=== PATIENT | male | born 1945 | race Caucasian/White ===

== ENCOUNTER → 2018-01-11 08:30 | Outpatient (CLI) | payer MEDICARE, SELFPAY | PROVIDERS: PCP Nurse Practitioner Family; Visit Provider Nurse Practitioner Gerontology | DX: R33.9 Retention of urine, unspecified (principal); I10 Essential (primary) hypertension; J44.9 Chronic obstructive pulmonary disease, unspecified | CPT/HCPCS: 99213 ==

== ENCOUNTER → 2018-04-13 09:56 | Outpatient (BNVA) | payer MEDICARE, SELFPAY | PROVIDERS: PCP Nurse Practitioner Family; Visit Provider Nurse Practitioner Gerontology | DX: R33.9 Retention of urine, unspecified (principal); I10 Essential (primary) hypertension; J44.9 Chronic obstructive pulmonary disease, unspecified | CPT/HCPCS: 99213 ==

== ENCOUNTER → 2018-04-28 10:27 | Outpatient (BNVA) | payer MEDICARE, SELFPAY | PROVIDERS: PCP Nurse Practitioner Family; Visit Provider Nurse Practitioner Gerontology | DX: R33.9 Retention of urine, unspecified (principal) | CPT/HCPCS: 99213 ==

== ENCOUNTER 2019-05-31 18:43 | Emergency (ER) | payer MEDICARE, SELFPAY ==
[2019-05-31 18:56] VITALS: BP 140/79; PULSE 114; RESP 16; TEMP 37.2; O2SAT 97
[2019-05-31 20:16] LABS: ALT 23 U/L (16-63); AST 23 U/L (15-37); Albumin 3.7 g/dL (3.4-5.0); Alkaline Phosphatase 113 U/L (46-116); Anion Gap 9.1 mmol/L (3-11); BUN 11 mg/dL (7-18); Bilirubin, Total 0.5 mg/dL (0.2-1.0); CO2 27.9 mmol/L (21.0-32.0); CREATININE 0.71 mg/dL (0.70-1.30); Calcium 8.8 mg/dL (8.5-10.1); Chloride 95 mmol/L (98-107); Glucose 98 mg/dL (74-106); Magnesium 1.6 mg/dL (1.8-2.4); Potassium 4.5 mmol/L (3.5-5.1); Sodium 132 mmol/L (136-145); Total Protein 7.5 g/dL (6.4-8.2)
[2019-05-31 20:20] LABS: Abs Immature Grans 0.04 k/cumm (0.0-0.09); Absolute Basophil Count 0.02 k/cumm (0.0-0.2); Absolute Neutrophil Count 13.43 k/cumm (1.2-6.7); Basophils % 0.1; Eosinophils % 0.3; HCT 36.4 % (40.0-50.0); Immature Grans % 0.3; Lymphocytes % 4.8; Mean Corpuscular Hemoglobin 26.3 pg (27.0-33.0); Mean Corpuscular Volume 79.6 fL (80-95); Mean Platelet Volume 8.6 fL (8.0-11.0); Neutrophils % 85.5; Platelet Count 387 x1000/uL (130-400); RBC 4.57 m/cumm (4.50-6.00); RBC Distribution Width 14.7 % (11.8-14.1); White Blood Cell Count 15.71 k/cumm (4.4-10.8)
[2019-05-31 20:22] LABS: Absolute Eosinophil Count 0.05 k/cumm (0.0-0.7); Absolute Lymphocyte Count 0.75 k/cumm (1.2-3.4); Absolute Monocyte Count 1.41 k/cumm (0.11-0.7)
[2019-05-31 20:45] LABS: Bilirubin Negative (Negative); Blood Negative (Negative); Clarity Clear (Clear); Glucose Negative (Negative); Ketones Negative (Negative); Leukocyte Esterase Negative (Negative); Nitrite Negative (Negative); Specific Gravity 1.015 (1.005-1.025); Urobilinogen 0.2 EU/dL (Up TO 0.2)
--- NOTE | 2019-05-31 20:57 | W.ED.GENAD ---
Discharge Plan Disposition Patient Disposition: HOME Discharge Details Chief Complaint: AMS/LOC Clinical Impression: Confusion Primary Care Provider: Deanne Cuba ED Provider: Slade Oswald Home Meds and New Rx's Prescriptions: Continued ALBUTEROL SULFATE HFA 8.5 GM HFA.AER.AD 2 puff Inhalation Q4H PRN Qty: 3 RF: 4 loratadine 10 MG tablet,disintegrating 1 tab PO daily prn RF: 0 aspirin 325 MG tablet 1 tab PO DAILY RF: 0 levothyroxine 75 MCG tablet 1 tab PO DAILY Qty: 90 RF: 4 prednisolone acetate [Pred Forte] 5 ML drops,suspension 1 drp OD DAILY Qty: 3 RF: 4 ascorbic acid (vitamin C) [Vitamin C] 500 MG tablet 1 tab PO DAILY RF: 0 omeprazole 20 MG capsule,delayed release(DR/EC) 1 cap PO DAILY Qty: 90 RF: 4 mometasone [Nasonex] 17 GM spray,non-aerosol 1 spray NS DAILY Qty: 3 RF: 4 atorvastatin 80 MG tablet 0.5 tab PO DAILY RF: 0 Symbicort 10.2 GM HFA aerosol inhaler 2 puff Inhalation BID RF: 0 Probiotic 1 EACH capsule 1 ea PO DAILY RF: 0 nitroglycerin [Nitrostat] 0.4 MG tablet, sublingual 1 tab.sl Sublingual PRN Qty: 10 RF: 1 lisinopril 10 MG tablet 10 mg PO DAILY RF: 0 brimonidine 15 ML drops 1 drp OD BID RF: 0 clopidogrel 75 mg Tablet 75 mg PO DAILY RF: 0 lorazepam 0.5 mg Tablet 0.5 mg PO QID PRN PRNRF: 0 oxycodone 5 mg Tablet 5 mg PO Q6H PRN PRNRF: 0 magnesium oxide 500 mg tablet 500 mg PO BID Qty: 60 RF: 2 gabapentin 250 mg/5 mL (5 mL) Solution 18 mg PO BID RF: 0 Discontinued scopolamine base 1 mg over 3 days Patch 3 Day 1.5 mg topical RF: 0 Discharge Instructions Additional Instructions: Please follow-up tomorrow with your oncologist. Be sure to discuss symptoms that you experienced today and discuss any recommendations for alternative to scopolamine patch. Please contact your primary care physician to arrange follow-up. Return to the ER for any worsening or new concerning symptoms. Referrals: Deanne Cuba NP [Primary Care Provider] - Discharge Data Discharge Date/Time-TO BE ENTERED AT DEPARTURE: 06/01/19 00:20 Medical Decision Making 21:00 --74-year-old male with history of oral cancer status post chemo, radiation, resection and grafting, now with new throat/neck mass concerning for recurrence, increased secretions recently, started on scopolamine patch yesterday, now with mild to moderate confusion today that seem to have improved since removal of the patch. Patient did have low-grade fever today. Patient has no signs of meningitis. Lungs are clear to auscultation. No urinary symptoms or abdominal discomfort or tenderness currently. Consider infectious etiology for confusion including UTI. Urinalysis was reviewed and is not consistent with infection. Labs reviewed and leukocytosis noted. Patient does have increased neck secretions and pain in his neck. Plan to proceed with CT of the cervical spine and chest to assess for infectious etiology including deep space infection of the neck. Obtained and reviewed outside hospital records including PET scan from [facility] 05/17/2019, interpreted by radiology: Large area of highly FDG avid soft tissue density fullness in the supraglottic right and left prevertebral/parapharyngeal space, highly suspicious for recurrent malignancy. Please see recent MR 05/04/2019 for further characterization of local tumor extent. Small notable metastasis strongly suspected in bilateral supraclavicular regions and in the right level 2 region. No distant sites of metastasis. Incidental CT findings noted. --CT neck interpreted by radiology: IMPRESSION: 1. Previous left neck surgery with partial resection of the mandible and probable soft tissue flap. No features to suggest acute process. Cannot exclude recurrence soft tissue mass in the left posterior parapharyngeal region deep to the soft tissue flap. 2. Mandibular hardware appears to have partially retracted from posterior mandibular attachment. 3. Cervical spine fusion and surgery. CT of the chest interpreted by radiology:IMPRESSION: 1. Diffuse emphysematous lung changes bilaterally. 2. Left lingular atelectasis. 3. Right basilar lung atelectasis posteriorly. 11:10 -- I called [facility] transfer center to discuss consultation with oncology. Awaiting call back. -- Spoke with oncology nutritional chemist - She agrees holding scopolamine and will arrange for timely outpatient followup. Plan discussed with patient and family who are in agreement. HPI General Mode of arrival: ambulatory. Date/Time Provider Initiated Documentation: 05/31/19 19:09. Limitations to Documentation: no limitations. Information obtained by: patient. 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 Patient is here with his who notes he has had increased secretions recently and was started on scopolamine patch yesterday. Today notes that he has been mild to moderately confused at times. She states he said low-grade fever today of 99 F. Denies cough or urinary symptoms. No headache. No neck stiffness. No abdominal pain. Related Data Home Medications Medication Instructions Recorded Confirmed Albuterol Sulfate Hfa 2 puff INHALATION Q4H PRN #3 puff 10/01/12 05/31/19 ascorbic acid (vitamin C) [Vitamin 1 tab PO DAILY 10/01/12 05/31/19 C] aspirin 1 tab PO DAILY tab-cap 10/01/12 05/31/19 levothyroxine 1 tab PO DAILY #90 tab-cap 10/01/12 05/31/19 loratadine 1 tab PO daily prn tab-cap 10/01/12 05/31/19 omeprazole 1 cap PO DAILY #90 tab-cap 10/01/12 05/31/19 prednisolone acetate [Pred Forte] 1 drp OD DAILY #3 drp 10/01/12 05/31/19 mometasone [Nasonex] 1 spray NS DAILY #3 spray 10/03/12 05/31/19 atorvastatin 0.5 tab PO DAILY 02/25/15 05/31/19 Symbicort 2 puff INHALATION BID inhaler 03/03/16 05/31/19 Probiotic 1 ea PO DAILY 09/09/16 04/28/18 nitroglycerin [Nitrostat] 1 tab.sl SUBLINGUAL PRN #10 tab 09/09/16 05/31/19 lisinopril 10 mg PO DAILY tab-cap 03/24/17 05/31/19 brimonidine 1 drp OD BID script 08/31/17 05/31/19 clopidogrel 75 mg PO DAILY 04/16/18 04/28/18 lorazepam 0.5 mg PO QID PRN PRN 04/16/18 05/31/19 oxycodone 5 mg PO Q6H PRN PRN 04/16/18 04/28/18 magnesium oxide 500 mg PO BID #60 tab 04/20/18 05/31/19 gabapentin 18 mg PO BID 05/31/19 05/31/19 Previous Rx's Medication Instructions Recorded magnesium oxide 500 mg PO BID #60 tab 04/20/18 Allergies Allergy/AdvReac Type Severity Reaction Status Date / Time carboplatin AdvReac Unknown BURNING Unverified 05/31/19 19:21 SENSATION lorazepam [From Ativan] AdvReac Unknown RESPIRATORY Unverified 05/31/19 19:22 DEPRESSION General Stated Complaint: AMS/LOC PAULO: 3 Review of Systems All systems reviewed & are unremarkable except as noted in HPI and below Constitutional Constitutional: Reports fever(s), Denies headache(s) and Denies lethargy ENT Ears, Nose, Mouth, and Throat: Reports as per HPI, Denies headache(s) and Reports neck pain (Left neck/throat chronic) Respiratory Respiratory: Denies cough Gastrointestinal Gastrointestinal: Denies vomiting Genitourinary Genitourinary: Denies dysuria and Denies flank pain Musculoskeletal Musculoskeletal: Reports neck pain (Left neck/throat chronic) Neurologic Neurologic: Denies headache(s) [facility] Medical History AAA (abdominal aortic aneurysm) (Chronic) Cervical disc disease with myelopathy (Chronic) COPD (chronic obstructive pulmonary disease) (Chronic) Essential hypertension (Chronic) GERD (gastroesophageal reflux disease) (Chronic) HLD (hyperlipidemia) (Chronic) CELESTINO (obstructive sleep apnea) (Chronic) Peripheral artery disease (Chronic) Primary tongue squamous cell carcinoma (Chronic) Surgical History H/O excision of lamina of cervical vertebra for decompression of spinal cord (Resolved 01/03/18) s/p C3-C6 posterior decompression and fusion to treat cervical myelopathy Laminectomy (Resolved 02/22/17) PROCEDURES (Resolved 02/22/17) [facility] Laminectomy,facetectomy & Foraminotomy, Lumbar,Thoracic SKIN GRAFT (Resolved) right hand ; burn on dorsum Status post angioplasty with stent (Resolved 04/05/18) bilateral iliofemoral endarterectomy w/ bovine patch angioplasty. bilateral profundaplasty, bilateral common iliac and external iliac stents. [facility], Dr. Rosy Qiu Tongue surgery (Resolved ~07/2009) Family History Mother Essential hypertension Neoplasm Colon Father Diabetes Essential hypertension Heart disease Stroke Sister No problems noted. Brother Essential hypertension Grandfather Heart disease Grandfather Heart disease Grandmother Heart disease Grandmother Heart disease Sister No problems noted. Brother No problems noted. Son No problems noted. Daughter No problems noted. Daughter No problems noted. Social History Smoking/Tobacco Use Status: Former Tobacco Use Alcohol Intake: current Alcohol type: beer Drug use: Never Substance use type: does not use Details: pt has one beer per night , he had one last night Do you feel safe in your relationship?: Yes Exam Const General: cooperative and no acute distress HENMT Mouth: moist mucous membranes Throat: posterior oropharynx abnormal (Status post grafting left throat) no erythema Eyes Conjunctivae: normal conjunctivae Sclera: normal sclerae Neck Neck: trachea midline and supple Resp Auscultation: clear to auscultation bilaterally, no rales, no rhonchi and no wheezes Cardio Jugular venous pressure: no JVD Rate: regular rate and not tachycardic Rhythm: regular rhythm GI Palpation: soft, not firm, no guarding, no masses, not rigid and nontender Skin General skin exam: no rashes or lesions noted Neuro General: alert, awake, oriented x3 and tone normal Extrem General: no edema Psych Appearance: grossly normal Mental Status: mental status grossly normal Course Vital Signs Vital signs: Vital Signs Temperature 37.2 C 05/31/19 18:56 Pulse 114 H 05/31/19 18:56 Respiratory Rate 16 05/31/19 18:56 Blood Pressure 140/79 05/31/19 18:56 Pulse Oximetry 97 05/31/19 18:56 Temperature 37.2 C 05/31/19 18:56 Temperature Source Temporal Artery Scan 05/31/19 18:56 Pulse 114 H 05/31/19 18:56 Respiratory Rate 16 05/31/19 18:56 Respiratory Effort 05/31/19 19:19 Respiratory Depth Normal 05/31/19 19:19 Respiratory Pattern Normal 05/31/19 19:19 Blood Pressure 140/79 05/31/19 18:56 Pulse Oximetry 97 05/31/19 18:56 Oxygen Delivery Method Room Air 05/31/19 18:56 Oxygen Flow Rate 0 05/31/19 18:56 Lab/Test Results Lab/Test Results: Laboratory Tests Range/Units 05/31/19 05/31/19 05/31/19 19:50 19:50 20:40 WBC (4.4-10.8) k/cumm 15.71 H RBC (4.50-6.00) m/cumm 4.57 Hgb (13.5-17.5) g/dL 12.0 L Hct (40.0-50.0) % 36.4 L MCV (80-95) fL 79.6 L MCH (27.0-33.0) pg 26.3 L MCHC (32.0-36.0) g/dL 33.0 RDW (11.8-14.1) % 14.7 H Plt Count (130-400) x1000/uL 387 MPV (8.0-11.0) fL 8.6 Immature Gran % 0.3 Neutrophils % 85.5 Lymphocytes % 4.8 Monocytes % 9.0 Eosinophils % 0.3 Basophils % 0.1 Absolute Neutrophils (1.2-6.7) k/cumm 13.43 H Absolute Lymphocytes (1.2-3.4) k/cumm 0.75 L Absolute Monocytes (0.11-0.7) k/cumm 1.41 H Absolute Eosinophils (0.0-0.7) k/cumm 0.05 Absolute Basophils (0.0-0.2) k/cumm 0.02 Sodium (136-145) mmol/L 132 L Potassium (3.5-5.1) mmol/L 4.5 Chloride (98-107) mmol/L 95 L Carbon Dioxide (21.0-32.0) mmol/L 27.9 Anion Gap (3-11) mmol/L 9.1 BUN (7-18) mg/dL 11 Creatinine (0.70-1.30) mg/dL 0.71 Estimated GFR/1.73 m2 (mL/min/1.73m2) >= 60.00 Glucose (74-106) mg/dL 98 Calcium (8.5-10.1) mg/dL 8.8 Magnesium (1.8-2.4) mg/dL 1.6 L Total Bilirubin (0.2-1.0) mg/dL 0.5 AST (15-37) U/L 23 ALT (16-63) U/L 23 Alkaline Phosphatase (46-116) U/L 113 Total Protein (6.4-8.2) g/dL 7.5 Albumin (3.4-5.0) g/dL 3.7 Urine Color (Yellow) Yellow Urine Clarity (Clear) Clear Urine pH (5-8) 7.0 Ur Specific [place] (1.005-1.025) 1.015 Urine Protein (Negative) mg/dL Negative Urine Ketones (Negative) mg/dL Negative Urine Blood (Negative) Negative Urine Nitrite (Negative) Negative Urine Bilirubin (Negative) Negative Urine Urobilinogen (Up TO 0.2) EU/dL 0.2 Ur Leukocyte Esterase (Negative) Negative Urine Glucose (Negative) mg/dL Negative
[2019-05-31] MEDS: diazePAM 5 MG TAB PO (21:13)
[2019-05-31] MEDS: Lidocaine 2% Jelly 6 ML SYR (21:14)
[2019-05-31] MEDS: Omnipaque 350 MG/ML 100 ML BTL IJ (22:17)
[2019-05-31] MEDS: Omnipaque 350 MG/ML 50 ML BTL IJ (22:18)
--- NOTE | 2019-05-31 22:19 | DI.CT_ITS ---
EXAM: CT NECK CHEST W CLINICAL HISTORY: fever, leukocytosis, confusion, neck mass TECHNIQUE: COMPARISON: CT chest PE CTA from 04/16/2018 CT chest PE abd pelvis w from 04/16/2018 FINDINGS: CT examination of the cervical region and chest was performed with intravenous infusion of 110 cc Om nipaque 350. There has been prior posterior spinal fusion surgery with Moreira rods in place from C3 through C6. There has been apparent prior left mandibular resection soft tissue. No postoperati ve films are available for comparison. There is increased prominence of retropharyngeal and retro la ryngeal soft tissues extending from approximately C2 through C6. This may be related to prior surger y but the possibility of recurrence of neoplastic disease infiltrating this area is not excluded. No gross airway obstruction identified this time, please correlate clinically. Scanning of the chest shows atheromatous calcification of the thoracic aorta without aneurysm or diss ection. Pulmonary arterial circulation not ideally opacified but no central pulmonary embolus identi fied. There are severe pulmonary emphysematous changes predominantly central lobular and there are a reas of bibasilar scarring and/or atelectasis. Minimal basilar consolidation may be present. There are areas of abnormal radiodensity in the right lung base posteriorly suspicious for consolidation or poorly defined mass. Appropriate follow-up studies are requested to assess these findings to resolu tion. No gross mediastinal or hilar adenopathy. Tracheolaryngeal structures appear intact. No pleural eff usion. Images obtained through the upper abdomen show a large left renal cyst and cholelithiasis. Visualize d portions of liver, spleen and pancreas appear. IMPRESSION: Postsurgical findings with resection of left mandible and presumed soft tissue flap as well as spa manager/esthetician ior cervical fusion. Retropharyngeal/retro laryngeal increased soft tissue prominence noted, no prio r examinations for comparison, neoplastic recurrence not excluded. Severe pulmonary emphysema, question right lung consolidation and/or masses in the lung base. Follow -up chest CT requested to re-evaluate these findings and exclude neoplastic disease.
--- NOTE | 2019-05-31 23:00 | DI.VRAD_ITS ---
PROCEDURE INFORMATION: Exam: CT Neck With Contrast Exam date and time: 05/31/2019 10:04 PM Age: 74 years old Clinical indication: Mass, lump, or swelling in neck; Prior surgery; Surgery date: 6+ months; Surgery type: Neck and jaw/tongue; Patient HX: Fever, leukocytosis, confusion, known left sided neck mass (not visible or palpable) TECHNIQUE: Imaging protocol: Computed tomography images of the neck with intravenous contrast. Radiation optimization: All CT scans at this facility use at least one of these dose optimization techniques: automated exposure control; mA and/or kV adjustment per patient size (includes targeted exams where dose is matched to clinical indication); or iterative reconstruction. Contrast material: [id number]; Contrast volume: 40 ml; Contrast route: IV LEFT HAND 20G; COMPARISON: CT chest PE abd pelvis w 04/16/2018 6:22 PM FINDINGS: Nasopharynx: Unremarkable. Oropharynx: Unremarkable. No significant tonsillar enlargement. Hypopharynx: Unremarkable Larynx: Unremarkable. Normal epiglottis. Retropharyngeal space: Unremarkable. Submandibular/Parotid glands: Normal. Glands are normal in size. Thyroid: Normal. No enlarged or calcified nodules. Lymph nodes: Unremarkable. No lymphadenopathy. Trachea: Visualized trachea is unremarkable. Lungs: Apical emphysematous change. Bones/joints: Previous multilevel cervical fusion and posterior laminectomy. Partial resection of the left mandible. Soft tissues: Postoperative changes of the left neck. Appearance suggesting a previous soft tissue flap type surgery and partial left mandibular resection. Large fatty area of tissue is likely part of a soft tissue flap repair. Recommend clinical correlation. Metal hardware along the posterior aspect of the mandible at the ramus and body appears to have distracted from the bone. Anterior hardware in the region of the mandibular symphysis anteriorly is intact. There is some soft tissue fullness in a left posterior parapharyngeal region. This is medial to the fatty soft tissues which are likely part of a soft tissue flap repair. This area of soft tissue fullness is approximately 3 cm. Possibility of neoplastic recurrence cannot be excluded. IMPRESSION: 1. Previous left neck surgery with partial resection of the mandible and probable soft tissue flap. No features to suggest acute process. Cannot exclude recurrence soft tissue mass in the left posterior parapharyngeal region deep to the soft tissue flap. 2. Mandibular hardware appears to have partially retracted from posterior mandibular attachment. 3. Cervical spine fusion and surgery. PROCEDURE INFORMATION: Exam: CT Chest With Contrast Exam date and time: 05/31/2019 10:04 PM Age: 74 years old Clinical indication: Mass, lump, or swelling in neck; Prior surgery; Surgery date: 6+ months; Surgery type: Neck and jaw/tongue; Patient HX: Fever, leukocytosis, confusion, known left sided neck mass (not visible or palpable) TECHNIQUE: Imaging protocol: Computed tomography of the chest with intravenous contrast. Radiation optimization: All CT scans at this facility use at least one of these dose optimization techniques: automated exposure control; mA and/or kV adjustment per patient size (includes targeted exams where dose is matched to clinical indication); or iterative reconstruction. Contrast material: [id number]; Contrast volume: 70 ml; Contrast route: IV LEFT HAND 20G; COMPARISON: CT chest PE abd pelvis w 04/16/2018 6:22 PM FINDINGS: Lungs: Diffuse emphysematous lung disease bilaterally. Bibasilar scarring and atelectatic type features. Left lingular atelectasis. Pleural space: Unremarkable. No pneumothorax. No pleural effusion. Heart: Unremarkable. No cardiomegaly. No pericardial effusion. Aorta: Unremarkable. No aortic aneurysm. Lymph nodes: Unremarkable. No enlarged lymph nodes. Bones/joints: Degenerative thoracic spine changes. Old mild T12 compression fracture. Soft tissues: Prominent posterior left renal cyst. Gallstones.. IMPRESSION: 1. Diffuse emphysematous lung changes bilaterally. 2. Left lingular atelectasis. 3. Right basilar lung atelectasis posteriorly. Dictated and Authenticated by: Jluis An MD. Ordering:SURENDRA June MD
[2019-05-31 23:28] VITALS: BP 99/50; PULSE 98; RESP 18; TEMP 36.8; O2SAT 96
== END 2019-06-01 00:20 | disposition home or self-care (01) ==
PROVIDERS: Emergency Provider Student in an Organized Health Care Education/Training Program; PCP Nurse Practitioner Family
DX: R41.0 Disorientation, unspecified (principal); Z85.810 Personal history of malignant neoplasm of tongue; Z92.21 Personal history of antineoplastic chemotherapy; I10 Essential (primary) hypertension; J44.9 Chronic obstructive pulmonary disease, unspecified
CPT/HCPCS: 36415; 70491; 80053; 99285; 71260; 81003; 83735; 85025; 99284; J3490; Q9967

== ENCOUNTER 2019-07-03 14:02 | Outpatient (REF) | payer MEDICARE, SELFPAY | END 2019-07-03 14:22 | LOC: LBN 14:02 | PROVIDERS: PCP Nurse Practitioner Family; Visit Provider Internal Medicine Hematology & Oncology | DX: C06.9 Malignant neoplasm of mouth, unspecified (principal) | CPT/HCPCS: 87070; 87205 ==

== ENCOUNTER 2019-07-24 01:25 | Outpatient (RCR) | payer MEDICARE, OTHER, SELFPAY ==
[2019-07-03] MEDS: Normal Saline Flush 10 ML SYR IVP (11:54)
[2019-07-03 12:02] LABS: Abs Immature Grans 0.03 k/cumm (0.0-0.09); Absolute Basophil Count 0.01 k/cumm (0.0-0.2); Absolute Eosinophil Count 0.05 k/cumm (0.0-0.7); Absolute Monocyte Count 0.96 k/cumm (0.11-0.7); Absolute Neutrophil Count 6.25 k/cumm (1.2-6.7); Basophils % 0.1; Eosinophils % 0.6; HCT 26.4 % (40.0-50.0); HGB 8.7 g/dL (13.5-17.5); Immature Grans % 0.4 %; Lymphocytes % 8.8; Mean Platelet Volume 7.7 fL (8.0-11.0); Neutrophils % 78.1; Platelet Count 419 x1000/uL (130-400); RBC 3.34 m/cumm (4.50-6.00); RBC Distribution Width 16.2 % (11.8-14.1)
[2019-07-03 12:33] LABS: ALT 36 U/L (16-63); AST 31 U/L (15-37); Albumin 2.1 g/dL (3.4-5.0); Alkaline Phosphatase 112 U/L (46-116); Anion Gap 8.3 mmol/L (3-11); BUN 17 mg/dL (7-18); Bilirubin, Total 0.2 mg/dL (0.2-1.0); CO2 27.7 mmol/L (21.0-32.0); CREATININE 0.51 mg/dL (0.70-1.30); Calcium 8.1 mg/dL (8.5-10.1); Chloride 95 mmol/L (98-107); Glucose 89 mg/dL (74-106); Potassium 4.4 mmol/L (3.5-5.1); Sodium 131 mmol/L (136-145); TSH 7.72 uIU/mL (0.36-3.74); Total Protein 6.6 g/dL (6.4-8.2)
[2019-07-10] MEDS: Normal Saline Flush 10 ML SYR IVP (12:20)
[2019-07-10 13:07] LABS: Abs Immature Grans 0.07 k/cumm (0.0-0.09); Absolute Basophil Count 0.05 k/cumm (0.0-0.2); Absolute Eosinophil Count 0.06 k/cumm (0.0-0.7); Absolute Lymphocyte Count 1.06 k/cumm (1.2-3.4); Absolute Monocyte Count 0.89 k/cumm (0.11-0.7); Absolute Neutrophil Count 5.08 k/cumm (1.2-6.7); Basophils % 0.7; Eosinophils % 0.8; HGB 7.6 g/dL (13.5-17.5); Lymphocytes % 14.7; Mean Corp. HGB Concentration 30.4 g/dL (32.0-36.0); Mean Corpuscular Hemoglobin 25.9 pg (27.0-33.0); Mean Corpuscular Volume 85.3 fL (80-95); Mean Platelet Volume 7.7 fL (8.0-11.0); Monocytes % 12.3; Neutrophils % 70.5; RBC 2.93 m/cumm (4.50-6.00); RBC Distribution Width 18.7 % (11.8-14.1); White Blood Cell Count 7.21 k/cumm (4.4-10.8)
[2019-07-10 13:12] LABS: ALT 25 U/L (16-63); AST 19 U/L (15-37); Albumin 2.6 g/dL (3.4-5.0); Alkaline Phosphatase 109 U/L (46-116); Anion Gap 6.9 mmol/L (3-11); BUN 20 mg/dL (7-18); Bilirubin, Total 0.2 mg/dL (0.2-1.0); CO2 29.1 mmol/L (21.0-32.0); CREATININE 0.55 mg/dL (0.70-1.30); Calcium 8.1 mg/dL (8.5-10.1); Chloride 106 mmol/L (98-107); Glucose 85 mg/dL (74-106); Magnesium 1.9 mg/dL (1.8-2.4); PHOSPHORUS 3.8 mg/dL (2.6-4.7); Sodium 142 mmol/L (136-145); Total Protein 6.8 g/dL (6.4-8.2)
[2019-07-10 13:52] LABS: Anisocytosis 2+; Diff Comment RBC Morph Reviewed; Platelet Count 694 x1000/uL (130-400); Polychromasia Present
[2019-07-10 13:53] LABS: Poikilocytes 1+
[2019-07-14] VITALS (8 sets, daily range): BP systolic 106–146; BP diastolic 65–80; PULSE 85–99; RESP 16–19; TEMP 36.5–36.9; O2SAT 94–100
[2019-07-14 10:08] LABS: Abs Immature Grans 0.02 k/cumm (0.0-0.09); Absolute Basophil Count 0.04 k/cumm (0.0-0.2); Absolute Eosinophil Count 0.03 k/cumm (0.0-0.7); Absolute Lymphocyte Count 0.91 k/cumm (1.2-3.4); Absolute Monocyte Count 0.75 k/cumm (0.11-0.7); Absolute Neutrophil Count 6.31 k/cumm (1.2-6.7); Basophils % 0.5; Eosinophils % 0.4; HCT 23.4 % (40.0-50.0); HGB 7.3 g/dL (13.5-17.5); Immature Grans % 0.2 %; Lymphocytes % 11.3; Mean Corp. HGB Concentration 31.2 g/dL (32.0-36.0); Mean Corpuscular Hemoglobin 26.9 pg (27.0-33.0); Mean Corpuscular Volume 86.3 fL (80-95); Mean Platelet Volume 8.1 fL (8.0-11.0); Monocytes % 9.3; Neutrophils % 78.3; RBC 2.71 m/cumm (4.50-6.00); RBC Distribution Width 19.9 % (11.8-14.1); White Blood Cell Count 8.06 k/cumm (4.4-10.8)
[2019-07-14 10:35] LABS: Anisocytosis 1+; Diff Comment RBC Morph Reviewed; Hypochromasia 1+; Macrocytosis 1+; Microcytosis 1+; Platelet Count 659 x1000/uL (130-400); Polychromasia Present
[2019-07-14 10:36] LABS: Poikilocytes 1+
[2019-07-14 10:40] LABS: Nucleated RBC 1 /100WBC
[2019-07-14] MEDS: Normal Saline Flush 10 ML SYR IVP (11:01)
[2019-07-14] MEDS: Heparin 500 UNITS/5 ML SYRINGE IV (13:46)
== END 2019-07-29 23:59 | disposition home or self-care (01) ==
LOC: INF 01:25
PROVIDERS: PCP Nurse Practitioner Family; Visit Provider Internal Medicine Hematology & Oncology
DX: C02.9 Malignant neoplasm of tongue, unspecified (principal); E03.4 Atrophy of thyroid (acquired); Z45.2 Encounter for adjustment and management of vascular access device
CPT/HCPCS: 36430; 36591; 80048; 80053; 86850; 86900; 86901; 86920; 96365; 96366; 83735; 84100; 84443; 85025; 86644; P9016

== ENCOUNTER 2019-08-21 02:18 | Outpatient (RCR) | payer MEDICARE, SELFPAY ==
[2019-07-31] MEDS: Normal Saline Flush 10 ML SYR IVP (13:36)
[2019-07-31 13:47] LABS: Abs Immature Grans 0.01 k/cumm (0.0-0.09); Absolute Basophil Count 0.03 k/cumm (0.0-0.2); Absolute Eosinophil Count 0.03 k/cumm (0.0-0.7); Absolute Lymphocyte Count 0.89 k/cumm (1.2-3.4); Absolute Monocyte Count 0.69 k/cumm (0.11-0.7); Absolute Neutrophil Count 1.74 k/cumm (1.2-6.7); Basophils % 0.9; Eosinophils % 0.9; HCT 27.5 % (40.0-50.0); HGB 8.9 g/dL (13.5-17.5); Immature Grans % 0.3 %; Lymphocytes % 26.3; Mean Corp. HGB Concentration 32.4 g/dL (32.0-36.0); Mean Corpuscular Hemoglobin 29.7 pg (27.0-33.0); Mean Corpuscular Volume 91.7 fL (80-95); Mean Platelet Volume 8.3 fL (8.0-11.0); Monocytes % 20.4; Neutrophils % 51.2; Platelet Count 237 x1000/uL (130-400); RBC Distribution Width 22.5 % (11.8-14.1); White Blood Cell Count 3.39 k/cumm (4.4-10.8)
[2019-07-31 14:09] LABS: Anisocytosis 2+; Diff Comment RBC Morph Reviewed; Polychromasia Present
[2019-07-31 14:10] LABS: Poikilocytes 1+
[2019-07-31 14:21] LABS: ALT 19 U/L (16-63); AST 16 U/L (15-37); Albumin 3.4 g/dL (3.4-5.0); Alkaline Phosphatase 87 U/L (46-116); Anion Gap 10.6 mmol/L (3-11); BUN 17 mg/dL (7-18); Bilirubin, Total 0.2 mg/dL (0.2-1.0); CO2 25.4 mmol/L (21.0-32.0); CREATININE 0.52 mg/dL (0.70-1.30); Calcium 8.2 mg/dL (8.5-10.1); Chloride 100 mmol/L (98-107); Glucose 120 mg/dL (74-106); Magnesium 1.6 mg/dL (1.8-2.4); PHOSPHORUS 3.8 mg/dL (2.6-4.7); Potassium 3.8 mmol/L (3.5-5.1); Sodium 136 mmol/L (136-145); TSH 9.22 uIU/mL (0.36-3.74); Total Protein 6.9 g/dL (6.4-8.2)
[2019-08-21] MEDS: Normal Saline Flush 10 ML SYR IVP (10:00)
[2019-08-21 10:22] LABS: Absolute Basophil Count 0.02 k/cumm (0.0-0.2); Absolute Eosinophil Count 0.04 k/cumm (0.0-0.7); Absolute Lymphocyte Count 0.87 k/cumm (1.2-3.4); Absolute Monocyte Count 0.75 k/cumm (0.11-0.7); Absolute Neutrophil Count 2.25 k/cumm (1.2-6.7); Basophils % 0.5; HCT 27.9 % (40.0-50.0); Lymphocytes % 22.1; Mean Corp. HGB Concentration 32.3 g/dL (32.0-36.0); Mean Corpuscular Hemoglobin 30.2 pg (27.0-33.0); Mean Corpuscular Volume 93.6 fL (80-95); Monocytes % 19.1; Neutrophils % 57.3; Platelet Count 132 x1000/uL (130-400); RBC 2.98 m/cumm (4.50-6.00); RBC Distribution Width 20.8 % (11.8-14.1); White Blood Cell Count 3.93 k/cumm (4.4-10.8)
[2019-08-21 10:46] LABS: Diff Comment RBC Morph Reviewed
[2019-08-21 10:47] LABS: Anisocytosis 2+; Poikilocytes 2+
[2019-08-21 10:51] LABS: ALT 25 U/L (16-63); AST 19 U/L (15-37); Albumin 3.4 g/dL (3.4-5.0); Alkaline Phosphatase 74 U/L (46-116); Anion Gap 7.9 mmol/L (3-11); BUN 15 mg/dL (7-18); Bilirubin, Total 0.3 mg/dL (0.2-1.0); CO2 28.1 mmol/L (21.0-32.0); CREATININE 0.44 mg/dL (0.70-1.30); Calcium 8.1 mg/dL (8.5-10.1); Chloride 100 mmol/L (98-107); Glucose 121 mg/dL (74-106); Magnesium 1.5 mg/dL (1.8-2.4); PHOSPHORUS 3.1 mg/dL (2.6-4.7); Potassium 3.8 mmol/L (3.5-5.1); Sodium 136 mmol/L (136-145); TSH 5.92 uIU/mL (0.36-3.74); Total Protein 6.7 g/dL (6.4-8.2)
== END 2019-08-29 23:59 | disposition home or self-care (01) ==
LOC: INF 02:18
PROVIDERS: Internal Medicine Hematology & Oncology; PCP Nurse Practitioner Family; Visit Provider Internal Medicine Hematology & Oncology
DX: C06.9 Malignant neoplasm of mouth, unspecified (principal); D64.81 Anemia due to antineoplastic chemotherapy; T45.1X5A Adverse effect of antineoplastic and immunosuppressive drugs, initial encounter; Z79.899 Other long term (current) drug therapy; Z45.2 Encounter for adjustment and management of vascular access device
CPT/HCPCS: 36591; 80053; 86900; 86901; 83735; 84100; 84443; 85025

== ENCOUNTER 2019-09-11 02:27 | Outpatient (RCR) | payer MEDICARE, SELFPAY ==
[2019-09-11 10:48] LABS: Absolute Basophil Count 0.02 k/cumm (0.0-0.2); Absolute Eosinophil Count 0.12 k/cumm (0.0-0.7); Absolute Lymphocyte Count 0.94 k/cumm (1.2-3.4); Absolute Monocyte Count 0.89 k/cumm (0.11-0.7); Basophils % 0.5; Eosinophils % 3.1; HCT 27.2 % (40.0-50.0); HGB 8.7 g/dL (13.5-17.5); Lymphocytes % 24.5; Mean Corpuscular Hemoglobin 30.5 pg (27.0-33.0); Mean Corpuscular Volume 95.4 fL (80-95); Mean Platelet Volume 8.5 fL (8.0-11.0); Monocytes % 23.2; Neutrophils % 48.7; Platelet Count 176 x1000/uL (130-400); RBC 2.85 m/cumm (4.50-6.00); RBC Distribution Width 18.7 % (11.8-14.1); White Blood Cell Count 3.83 k/cumm (4.4-10.8)
[2019-09-11 10:50] LABS: Absolute Neutrophil Count 1.87 k/cumm (1.2-6.7)
[2019-09-11 11:11] LABS: ALT 24 U/L (16-63); AST 16 U/L (15-37); Albumin 3.5 g/dL (3.4-5.0); Alkaline Phosphatase 68 U/L (46-116); Anion Gap 6.7 mmol/L (3-11); BUN 18 mg/dL (7-18); Bilirubin, Total 0.3 mg/dL (0.2-1.0); CO2 29.3 mmol/L (21.0-32.0); CREATININE 0.53 mg/dL (0.70-1.30); Calcium 8.4 mg/dL (8.5-10.1); Chloride 100 mmol/L (98-107); Glucose 110 mg/dL (74-106); Potassium 3.8 mmol/L (3.5-5.1); Sodium 136 mmol/L (136-145); TSH 3.66 uIU/mL (0.36-3.74); Total Protein 6.7 g/dL (6.4-8.2)
[2019-09-11] MEDS: Normal Saline Flush 10 ML SYR IVP (11:11)
[2019-09-11 11:13] LABS: Iron 27 ug/dL (65-175); Total Iron Binding Capacity 371 ug/dL (250-450); Transferrin Sat 7 % (20-55)
[2019-09-11 12:05] LABS: Magnesium 1.6 mg/dL (1.8-2.4)
== END 2019-09-28 23:59 | disposition home or self-care (01) ==
LOC: INF 02:27
PROVIDERS: Internal Medicine Hematology & Oncology; PCP Nurse Practitioner Family; Visit Provider Internal Medicine Hematology & Oncology
DX: C06.9 Malignant neoplasm of mouth, unspecified (principal); Z45.2 Encounter for adjustment and management of vascular access device; D64.81 Anemia due to antineoplastic chemotherapy; T45.1X5A Adverse effect of antineoplastic and immunosuppressive drugs, initial encounter; Z79.899 Other long term (current) drug therapy
CPT/HCPCS: 36591; 80053; 86900; 86901; 83540; 83550; 83735; 84443; 85025

== ENCOUNTER 2019-10-02 02:23 | Outpatient (RCR) | payer OTHER, MEDICARE, SELFPAY ==
[2019-10-02] MEDS: Normal Saline Flush 10 ML SYR IVP (10:15)
[2019-10-02 10:40] LABS: Abs Immature Grans 0.02 k/cumm (0.0-0.09); Absolute Basophil Count 0.03 k/cumm (0.0-0.2); Absolute Eosinophil Count 0.19 k/cumm (0.0-0.7); Absolute Lymphocyte Count 0.96 k/cumm (1.2-3.4); Absolute Monocyte Count 1.45 k/cumm (0.11-0.7); Absolute Neutrophil Count 4.29 k/cumm (1.2-6.7); Basophils % 0.4; Eosinophils % 2.7; HCT 28.4 % (40.0-50.0); HGB 9.1 g/dL (13.5-17.5); Immature Grans % 0.3 %; Lymphocytes % 13.8; Mean Corpuscular Hemoglobin 30.2 pg (27.0-33.0); Mean Corpuscular Volume 94.4 fL (80-95); Mean Platelet Volume 8.2 fL (8.0-11.0); Monocytes % 20.9; Neutrophils % 61.9; Platelet Count 226 x1000/uL (130-400); RBC 3.01 m/cumm (4.50-6.00); RBC Distribution Width 17.2 % (11.8-14.1); White Blood Cell Count 6.94 k/cumm (4.4-10.8)
[2019-10-02 11:00] LABS: ALT 26 U/L (16-63); AST 15 U/L (15-37); Albumin 2.8 g/dL (3.4-5.0); Alkaline Phosphatase 75 U/L (46-116); Anion Gap 8.3 mmol/L (3-11); BUN 17 mg/dL (7-18); Bilirubin, Total 0.3 mg/dL (0.2-1.0); CO2 26.7 mmol/L (21.0-32.0); CREATININE 0.57 mg/dL (0.70-1.30); Calcium 8.1 mg/dL (8.5-10.1); Chloride 97 mmol/L (98-107); Glucose 109 mg/dL (74-106); Magnesium 1.3 mg/dL (1.8-2.4); Potassium 3.8 mmol/L (3.5-5.1); Sodium 132 mmol/L (136-145); TSH 5.72 uIU/mL (0.36-3.74); Total Protein 6.1 g/dL (6.4-8.2)
== END 2019-10-29 23:59 | disposition home or self-care (01) ==
LOC: INF 02:23
PROVIDERS: PCP Nurse Practitioner Family; Visit Provider Internal Medicine Hematology & Oncology
DX: E03.4 Atrophy of thyroid (acquired) (principal); C02.9 Malignant neoplasm of tongue, unspecified; Z45.2 Encounter for adjustment and management of vascular access device
CPT/HCPCS: 36591; 80053; 83735; 84443; 85025

== ENCOUNTER 2019-11-20 00:51 | Outpatient (RCR) | payer OTHER, MEDICARE, SELFPAY ==
[2019-10-30] MEDS: Normal Saline Flush 10 ML SYR IVP (10:45)
[2019-10-30 11:09] LABS: Abs Immature Grans 0.01 k/cumm (0.0-0.09); Absolute Basophil Count 0.02 k/cumm (0.0-0.2); Absolute Eosinophil Count 0.05 k/cumm (0.0-0.7); Absolute Lymphocyte Count 0.86 k/cumm (1.2-3.4); Absolute Monocyte Count 1.02 k/cumm (0.11-0.7); Absolute Neutrophil Count 2.91 k/cumm (1.2-6.7); Basophils % 0.4; HGB 9.6 g/dL (13.5-17.5); Immature Grans % 0.2 %; Lymphocytes % 17.7; Mean Corpuscular Hemoglobin 29.5 pg (27.0-33.0); Mean Corpuscular Volume 92.3 fL (80-95); Mean Platelet Volume 7.8 fL (8.0-11.0); Monocytes % 20.9; Neutrophils % 59.8; Platelet Count 343 x1000/uL (130-400); RBC 3.25 m/cumm (4.50-6.00); RBC Distribution Width 16.9 % (11.8-14.1); White Blood Cell Count 4.87 k/cumm (4.4-10.8)
[2019-10-30 11:30] LABS: ALT 22 U/L (16-63); AST 14 U/L (15-37); Albumin 2.3 g/dL (3.4-5.0); Alkaline Phosphatase 80 U/L (46-116); Anion Gap 5.9 mmol/L (3-11); BUN 14 mg/dL (7-18); Bilirubin, Total 0.1 mg/dL (0.2-1.0); CO2 28.1 mmol/L (21.0-32.0); CREATININE 0.47 mg/dL (0.70-1.30); Calcium 7.9 mg/dL (8.5-10.1); Chloride 98 mmol/L (98-107); Glucose 132 mg/dL (74-106); Magnesium 1.6 mg/dL (1.8-2.4); Potassium 3.7 mmol/L (3.5-5.1); Sodium 132 mmol/L (136-145); TSH 8.83 uIU/mL (0.36-3.74); Total Protein 5.8 g/dL (6.4-8.2)
[2019-11-20] MEDS: Normal Saline Flush 10 ML SYR IVP (10:20)
[2019-11-20 10:50] LABS: Abs Immature Grans 0.01 k/cumm (0.0-0.09); Absolute Basophil Count 0.03 k/cumm (0.0-0.2); Absolute Eosinophil Count 0.08 k/cumm (0.0-0.7); Absolute Lymphocyte Count 0.98 k/cumm (1.2-3.4); Absolute Monocyte Count 1.46 k/cumm (0.11-0.7); Absolute Neutrophil Count 3.46 k/cumm (1.2-6.7); Basophils % 0.5; Eosinophils % 1.3; HGB 9.8 g/dL (13.5-17.5); Immature Grans % 0.2 %; Lymphocytes % 16.3; Mean Corp. HGB Concentration 31.6 g/dL (32.0-36.0); Mean Corpuscular Hemoglobin 29.3 pg (27.0-33.0); Mean Corpuscular Volume 92.8 fL (80-95); Mean Platelet Volume 7.9 fL (8.0-11.0); Monocytes % 24.3; Neutrophils % 57.4; Platelet Count 375 x1000/uL (130-400); RBC 3.34 m/cumm (4.50-6.00); RBC Distribution Width 16.6 % (11.8-14.1); White Blood Cell Count 6.02 k/cumm (4.4-10.8)
[2019-11-20 11:09] LABS: ALT 19 U/L (16-63); AST 16 U/L (15-37); Alkaline Phosphatase 75 U/L (46-116); Anion Gap 4.9 mmol/L (3-11); BUN 17 mg/dL (7-18); Bilirubin, Total 0.3 mg/dL (0.2-1.0); CO2 31.1 mmol/L (21.0-32.0); Calcium 7.8 mg/dL (8.5-10.1); Chloride 98 mmol/L (98-107); Glucose 128 mg/dL (74-106); Magnesium 1.6 mg/dL (1.8-2.4); Sodium 134 mmol/L (136-145); TSH 10.43 uIU/mL (0.36-3.74); Total Protein 5.1 g/dL (6.4-8.2)
[2019-11-21 10:25] LABS: IgG 672 mg/dL (610-1,616)
[2019-11-22 12:19] LABS: IgA 284 mg/dL (85-499); Tissue Transglutaminase IgA 1.3 U/mL (<4.0)
== END 2019-11-28 23:59 | disposition home or self-care (01) ==
LOC: INF 00:51
PROVIDERS: PCP Nurse Practitioner Family; Visit Provider Internal Medicine Hematology & Oncology
DX: C02.9 Malignant neoplasm of tongue, unspecified (principal); Z45.2 Encounter for adjustment and management of vascular access device; E03.4 Atrophy of thyroid (acquired)
CPT/HCPCS: 36591; 80053; 82784; 83516; 83735; 84443; 85025

== ENCOUNTER 2019-12-11 01:20 | Outpatient (RCR) | payer OTHER, MEDICARE, SELFPAY ==
[2019-12-11] MEDS: Normal Saline Flush 10 ML SYR IVP (10:28)
[2019-12-11 10:38] LABS: Abs Immature Grans 0.02 k/cumm (0.0-0.09); Absolute Basophil Count 0.02 k/cumm (0.0-0.2); Absolute Eosinophil Count 0.08 k/cumm (0.0-0.7); Absolute Monocyte Count 1.04 k/cumm (0.11-0.7); Absolute Neutrophil Count 3.87 k/cumm (1.2-6.7); Basophils % 0.3; Eosinophils % 1.3; HCT 31.3 % (40.0-50.0); Immature Grans % 0.3 %; Lymphocytes % 15.2; Mean Corp. HGB Concentration 31.9 g/dL (32.0-36.0); Mean Corpuscular Hemoglobin 28.8 pg (27.0-33.0); Mean Corpuscular Volume 90.2 fL (80-95); Mean Platelet Volume 7.9 fL (8.0-11.0); Monocytes % 17.5; Neutrophils % 65.4; Platelet Count 351 x1000/uL (130-400); RBC 3.47 m/cumm (4.50-6.00); RBC Distribution Width 15.1 % (11.8-14.1); White Blood Cell Count 5.93 k/cumm (4.4-10.8)
[2019-12-11 10:42] LABS: ALT 20 U/L (16-63); AST 17 U/L (15-37); Albumin 1.8 g/dL (3.4-5.0); Alkaline Phosphatase 83 U/L (46-116); Anion Gap 4.3 mmol/L (3-11); BUN 11 mg/dL (7-18); Bilirubin, Total 0.2 mg/dL (0.2-1.0); CO2 29.7 mmol/L (21.0-32.0); CREATININE 0.49 mg/dL (0.70-1.30); Calcium 7.5 mg/dL (8.5-10.1); Chloride 97 mmol/L (98-107); Glucose 143 mg/dL (74-106); Magnesium 1.5 mg/dL (1.8-2.4); Potassium 3.8 mmol/L (3.5-5.1); Sodium 131 mmol/L (136-145); Total Protein 5.2 g/dL (6.4-8.2)
== END 2019-12-29 23:59 | disposition home or self-care (01) ==
LOC: INF 01:20
PROVIDERS: PCP Nurse Practitioner Family; Visit Provider Internal Medicine Hematology & Oncology
DX: C02.9 Malignant neoplasm of tongue, unspecified (principal); E03.4 Atrophy of thyroid (acquired); Z45.2 Encounter for adjustment and management of vascular access device
CPT/HCPCS: 36591; 80053; 83735; 85025

== ENCOUNTER 2020-01-01 01:37 | Outpatient (RCR) | payer OTHER, MEDICARE, SELFPAY ==
[2020-01-01 10:46] LABS: Abs Immature Grans 0.05 10^3/uL (0.0-0.06); Absolute Basophil Count 0.05 10^3/uL (0.0-0.2); Absolute Eosinophil Count 0.08 10^3/uL (0.0-0.7); Absolute Lymphocyte Count 0.86 10^3/uL (1.2-3.4); Absolute Neutrophil Count 6.05 10^3/uL (1.2-6.7); Basophils % 0.6; HCT 29.2 % (40.0-50.0); HGB 9.3 g/dL (13.5-17.5); Immature Grans % 0.6; Lymphocytes % 10.4; MCH 27.9 pg (27.0-33.0); MCHC 31.8 % (32.0-36.0); MCV 87.7 fL (80-95); MPV 8.2 fL (8.0-11.0); Monocytes % 14.5; Neutrophils % 72.9; Platelet Count 335 10^3/uL (130-400); RBC 3.33 10^6/uL (4.36-5.78); RDW 14.3 % (11.8-14.1); RDW-SD 45.3 fL; WBC 8.29 10^3/uL (4.4-10.8)
[2020-01-01] MEDS: Normal Saline Flush 10 ML SYR IVP (10:47)
[2020-01-01 11:02] LABS: ALT 17 U/L (16-63); AST 14 U/L (15-37); Albumin 1.7 g/dL (3.4-5.0); Alkaline Phosphatase 79 U/L (46-116); Anion Gap 7.4 mmol/L (3-11); BUN 15 mg/dL (7-18); Bilirubin, Total 0.2 mg/dL (0.2-1.0); CO2 26.6 mmol/L (21.0-32.0); CREATININE 0.47 mg/dL (0.70-1.30); Calcium 7.9 mg/dL (8.5-10.1); Chloride 100 mmol/L (98-107); Glucose 118 mg/dL (74-106); Magnesium 1.4 mg/dL (1.8-2.4); Potassium 3.8 mmol/L (3.5-5.1); Sodium 134 mmol/L (136-145); Total Protein 5.5 g/dL (6.4-8.2)
== END 2020-01-29 23:59 | disposition home or self-care (01) ==
LOC: INF 01:37
PROVIDERS: PCP Nurse Practitioner Family; Visit Provider Internal Medicine Hematology & Oncology
DX: E03.4 Atrophy of thyroid (acquired) (principal); Z45.2 Encounter for adjustment and management of vascular access device
CPT/HCPCS: 36591; 80053; 83735; 85025

== ENCOUNTER 2020-01-04 14:38 | Outpatient (REF) | payer MEDICARE, OTHER, SELFPAY ==
[2020-01-09 13:34] LABS: Helicobacter pylori Ag, Feces Negative (Negative)
== END 2020-01-04 14:58 ==
LOC: LBN 14:38
PROVIDERS: PCP Nurse Practitioner Family; Visit Provider Internal Medicine Gastroenterology
DX: R10.9 Unspecified abdominal pain (principal)
CPT/HCPCS: 87338

== ENCOUNTER 2020-11-04 03:44 | Outpatient (RCR) | payer MEDICARE, SELFPAY ==
[2020-11-04 10:56] LABS: Abs Immature Grans 0.02 10^3/uL (0.0-0.06); Absolute Basophil Count 0.06 10^3/uL (0.0-0.2); Absolute Eosinophil Count 0.11 10^3/uL (0.0-0.7); Absolute Lymphocyte Count 1.15 10^3/uL (1.2-3.4); Absolute Neutrophil Count 3.71 10^3/uL (1.2-6.7); Eosinophils % 1.8; HCT 42.5 % (40.0-50.0); HGB 13.9 g/dL (13.5-17.5); Immature Grans % 0.3; Lymphocytes % 19.3; MCH 29.8 pg (27.0-33.0); MCHC 32.7 % (32.0-36.0); MCV 91.2 fL (80-95); MPV 9.6 fL (8.0-11.0); Monocytes % 15.1; Neutrophils % 62.5; Nucleated RBC 0 %; Platelet Count 182 10^3/uL (130-400); RBC 4.66 10^6/uL (4.36-5.78); RDW 14.1 % (11.8-14.1); RDW-SD 47.4 fL; WBC 5.95 10^3/uL (4.4-10.8)
[2020-11-04] MEDS: Normal Saline Flush 10 ML SYR IVP (11:01)
[2020-11-04] MEDS: Heparin 500 UNITS/5 ML SYRINGE IV (11:03)
[2020-11-04 11:17] LABS: Albumin 3.4 g/dL (3.4-5.0); Alkaline Phosphatase 110 U/L (46-116); BUN 13 mg/dL (7-18); Bilirubin, Total 0.4 mg/dL (0.2-1.0); CREATININE 0.6 mg/dL (0.70-1.30); Calcium 8.6 mg/dL (8.5-10.1); Glucose 109 mg/dL (74-106); Sodium 140 mmol/L (136-145); Total Protein 7.3 g/dL (6.4-8.2)
[2020-11-04 11:18] LABS: ALT 26 U/L (16-63); AST 21 U/L (15-37); Chloride 103 mmol/L (98-107); Potassium 4.1 mmol/L (3.5-5.1); TSH 1.84 uIU/mL (0.36-3.74)
== END 2020-11-27 23:59 | disposition home or self-care (01) ==
LOC: INF 03:44
PROVIDERS: PCP Nurse Practitioner Family; Visit Provider Internal Medicine Hematology & Oncology
DX: I48.91 Unspecified atrial fibrillation (principal); C06.9 Malignant neoplasm of mouth, unspecified; Z45.2 Encounter for adjustment and management of vascular access device; E03.4 Atrophy of thyroid (acquired)
CPT/HCPCS: 36591; 80053; 96523; 84443; 85025

== ENCOUNTER 2020-12-03 09:47 | Outpatient (RCR) | payer MEDICARE, SELFPAY ==
[2020-12-03] MEDS: Normal Saline Flush 10 ML SYR IVP (10:07)
[2020-12-03] MEDS: Heparin 500 UNITS/5 ML SYRINGE IVP (10:08)
== END 2020-12-28 23:59 | disposition home or self-care (01) ==
LOC: INF 09:47
PROVIDERS: PCP Nurse Practitioner Family; Visit Provider Internal Medicine Hematology & Oncology
DX: Z45.2 Encounter for adjustment and management of vascular access device (principal)
CPT/HCPCS: 96523

== ENCOUNTER 2021-02-10 03:23 | Outpatient (RCR) | payer MEDICARE, SELFPAY ==
[2021-02-10] MEDS: Normal Saline Flush 10 ML SYR IVP (10:14)
[2021-02-10 10:18] LABS: Abs Immature Grans 0.01 10^3/uL (0.0-0.06); Absolute Basophil Count 0.05 10^3/uL (0.0-0.2); Absolute Eosinophil Count 0.13 10^3/uL (0.0-0.7); Absolute Lymphocyte Count 1.08 10^3/uL (1.2-3.4); Absolute Monocyte Count 0.64 10^3/uL (0.1-0.8); Absolute Neutrophil Count 3.18 10^3/uL (1.2-6.7); Eosinophils % 2.6; HCT 43.2 % (40.0-50.0); HGB 14.1 g/dL (13.5-17.5); Immature Grans % 0.2; Lymphocytes % 21.2; MCH 30.5 pg (27.0-33.0); MCHC 32.6 % (32.0-36.0); MCV 93.5 fL (80-95); MPV 9.8 fL (8.0-11.0); Monocytes % 12.6; Neutrophils % 62.4; Nucleated RBC 0 %; Platelet Count 159 10^3/uL (130-400); RBC 4.62 10^6/uL (4.36-5.78); RDW 14.3 % (11.8-14.1); WBC 5.09 10^3/uL (4.4-10.8)
[2021-02-10 10:39] LABS: ALT 27 U/L (16-63); AST 22 U/L (15-37); Albumin 3.8 g/dL (3.4-5.0); Alkaline Phosphatase 97 U/L (46-116); Anion Gap 5.8 mmol/L (3-11); BUN 13 mg/dL (7-18); Bilirubin, Total 0.5 mg/dL (0.2-1.0); CO2 29.2 mmol/L (21.0-32.0); CREATININE 0.7 mg/dL (0.70-1.30); Calcium 8.8 mg/dL (8.5-10.1); Chloride 104 mmol/L (98-107); Glucose 88 mg/dL (74-106); Potassium 4.2 mmol/L (3.5-5.1); Sodium 139 mmol/L (136-145); Total Protein 7.2 g/dL (6.4-8.2)
== END 2021-02-27 23:59 | disposition home or self-care (01) ==
LOC: INF 03:23
PROVIDERS: PCP Nurse Practitioner Family; Visit Provider Internal Medicine Hematology & Oncology
DX: C06.9 Malignant neoplasm of mouth, unspecified (principal); E03.9 Hypothyroidism, unspecified; Z45.2 Encounter for adjustment and management of vascular access device; I48.91 Unspecified atrial fibrillation
CPT/HCPCS: 36591; 80053; 84443; 85025

== ENCOUNTER 2021-02-21 07:30 | Outpatient (CLI) | payer MEDICARE, SELFPAY ==
[2021-02-21 11:57] LABS: Source Nasal/Nares
[2021-02-21 17:35] LABS: COVID-19 PCR Negative (Negative)
== END 2021-02-21 07:31 | disposition home or self-care (01) ==
LOC: LBO 07:32
PROVIDERS: PCP Nurse Practitioner Family; Visit Provider Ophthalmology
DX: Z20.822 Contact with and (suspected) exposure to COVID-19 (principal); Z01.818 Encounter for other preprocedural examination
CPT/HCPCS: 87635

== ENCOUNTER 2021-02-24 07:32 | Day surgery (SDC) | payer OTHER, SELFPAY ==
[2021-02-24] MEDS: Tropicam./Phenyleph. (1/2.5%) 5 ML BTL ×3 (07:58→08:25)
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
[2021-02-24 08:16] VITALS: BP 163/93; PULSE 77; RESP 16; TEMP 36.3; O2SAT 96
[2021-02-24 08:52] VITALS: BMI 30.6
[2021-02-24] MEDS: Lactated Ringers 1,000 ML 80 ML IV (09:00)
[2021-02-24] MEDS: Povidone-Iodine Ophth 30 ML BTL (09:35)
[2021-02-24] MEDS: Lidocaine 2% Jelly 6 ML SYR (09:35)
[2021-02-24] MEDS: Tetracaine 0.5% 4 ML BTL (09:35)
[2021-02-24] MEDS: Lidocaine 1% Pres-Free 5 ML VIAL (09:36)
[2021-02-24] MEDS: Trypan Blue 0.06% 0.5 ML SYR (09:39)
[2021-02-24] MEDS: Balanced Salt Soln.-PLUS 500 ML BAG (09:40)
[2021-02-24] MEDS: Duovisc Viscoelastic System EACH 1 EACH (09:40)
[2021-02-24 10:01] VITALS: BP 91/59; PULSE 69; RESP 16; TEMP 36.2; O2SAT 98
--- NOTE | 2021-02-24 10:05 | W.PM.DSUDISC ---
Discharge Plan Disposition Patient Disposition: HOME Condition: Good Discharge Details Attending Provider: Ronald Nettles Primary Care Provider: Deanne Cuba Home Meds and New Rx's Prescriptions: No Action ALBUTEROL SULFATE HFA 8.5 GM HFA.AER.AD 2 puff Inhalation Q4H PRN Qty: 3 RF: 4 loratadine 10 MG tablet,disintegrating 1 tab feeding tube daily prn RF: 0 aspirin 325 MG tablet 1 tab feeding tube DAILY RF: 0 prednisolone acetate [Pred Forte] 5 ML drops,suspension 1 drp OD DAILY Qty: 3 RF: 4 ascorbic acid (vitamin C) [Vitamin C] 500 MG tablet 1 tab PO DAILY RF: 0 mometasone [Nasonex] 17 GM spray,non-aerosol 1 spray NS DAILY Qty: 3 RF: 4 budesonide-formoterol [Symbicort] 10.2 GM HFA aerosol inhaler 2 puff Inhalation BID RF: 0 Probiotic 1 EACH capsule 1 ea feeding tube DAILY RF: 0 nitroglycerin [Nitrostat] 0.4 MG tablet, sublingual 1 tab.sl Sublingual PRN Qty: 10 RF: 1 brimonidine 15 ML drops 1 drp OD BID RF: 0 clopidogrel 75 mg Tablet 75 mg feeding tube DAILY RF: 0 lorazepam 0.5 mg Tablet 0.5 mg feeding tube QID PRN PRNRF: 0 oxycodone 5 mg Tablet 5 mg feeding tube Q6H PRN PRNRF: 0 lansoprazole 30 mg Capsule,Delayed Release(Dr/Ec) 30 mg feeding tube DAILY RF: 0 mirtazapine 15 mg Tablet 15 mg feeding tube DAILY RF: 0 levothyroxine 112 mcg Tablet 112 mcg feeding tube DAILY RF: 0 guaifenesin 400 mg Tablet 400 mg BID RF: 0 Discharge Instructions Stand Alone Forms: Post-op Topical Cataract, Landen Jansen (DSU) Discharge Orders Discharge Orders: Discharge Order (Routine); Ordered 02/24/21 Ordered By: Ronald Nettles DS: Diagnosis Discharge Diagnosis (1) Posterior subcapsular age-related cataract of left eye: Status: Resolved (2) Nuclear sclerotic cataract of left eye: Status: Resolved
--- NOTE | 2021-02-24 10:06 | ROE_ITS ---
Date of service: 02/24/21 Time of Service: 10:06 Operative Note Operative Note DATE OF PROCEDURE: 02/24/21 PRE-OP DIAGNOSIS: Dense nuclear/posterior subcapsular cataract, left eye Poor red reflex, left eye secondary to cataract POST-OP DIAGNOSIS: same PROCEDURE: Cataract extraction using phacoemulsification with intraocular lens implant, left eye, using capsular staining with Vision Blue SURGEON: Ronald Nettles ANESTHESIA TYPE: Local By Surgeon and MAC Refer to Anesthesia Record COMPLICATIONS: None Patient was transported to: same day Patient's condition: stable Implants: Kevin [employer] Kevni / [employer] Tecnis [id number] Indications: Progressive decreased vision due to cataract, left eye, with poor red reflex Procedure Description: CATARACT SURGERY OPERATIVE REPORT PREOPERATIVE DIAGNOSIS: 1. Dense nuclear/posterior subcapsular cataract, left eye 2. Poor red reflex secondary to #1 POSTOPERATIVE DIAGNOSIS: Same OPERATION: 1. Cataract extraction using phacoemulsification with posterior chamber intraocular lens implant, left eye. 2. Capsular staining with Vision Blue IOL: IOL Outpatient Interviewing Clerk/Model: Kevin & Kevin / ALISHA Tecnis [id number] IOL Power: + 21.5 diopters IOL Serial Number: [id number] Optic Diameter: 6.0 mm Haptic/Overall Diameter: 13.0 mm PHACO INFO: [employer] Vision System with OZil and [employer]uidics Cumulative Dispersed Energy (CDE): 16.30 seconds SURGEON: Ronald Nettles MD, SOILA ANESTHESIA: Monitored A [facility] (MAC), with local sub-tenon's anesthetic infiltration COMPLICATIONS: None SPECIMENS: None INDICATIONS FOR PROCEDURE: Patient is a 75-year-old gentleman with history of progressive decreased vision in his left eye secondary to the development of nuclear/posterior subcapsular cataract. He has previously undergone cataract surgery by Dr. Storey in the right eye. The option of cataract surgery in the left eye was offered to the patient and he wished to proceed. PROCEDURE: The correct surgical eye was identified and marked as the left eye and the pupil was dilated in the preoperative area using mydriatics and cycloplegics. The dilated pupil size was 6.0 mm. He received IV sedation. The patient was brought to the operating room where cardiopulmonary monitoring was instituted and surgical time-out was performed, confirming the correct operative eye and IOL power. Positioning was challenging due to the patient's tracheostomy with inability to lie flat, cervical fusion, and claustrophobia. Topical anesthesia was administered and ophthalmic povidone-iodine 5% was instilled into the conjunctival fornices. Lidocaine gel was applied to the c ornea and the raven-ocular area was prepped with Betadine 10% solution and draped in the usual sterile fashion for intraocular surgery, including an aperture drape. A Tegaderm transparent film dressing was cut in half and used to cover the lashes and lid margins. Care was taken to sequester the lashes and lid margins under the Tegaderm dressing. A lid speculum was placed between the lids of the operative eye and the Vahid-Olayinka operating microscope was maneuvered into position. Sheryl scissors were then used to make a conjunctival buttonhole approximately 6mm posterior to the limbus in the inferonasal quadrant. Blunt dissection was carried out to expose bare sclera, and a blunt-tipped sub-tenon?s anesthesia cannula was introduced and passed posteriorly along the globe where non-prese rved plain lidocaine was injected into posterior sub-Tenon?s space. A sideport knife was used to make a paracentesis port superiorly/superiortemporally. Intraocular phenylephrine/lidocaine was injected int the anterior chamber.. Air was then injected into the anterior chamber, followed by Vision Blue, which was painted over the anterior capsule and then irrigated out using BSS. The anterior chamber was filled with viscoelastic. A 2.4mm keratome knife was used to create a half-thickness groove at the limbus and then to construct a three- plane near-clear corneal tunnel extending 2.0mm into clear cornea at the 3:00 position. A flap was raised on the anterior capsule and capsulorhexis forceps were used to complete a continuous curvilinear capsulorhexis of 5.0 mm. Balanced salt solution was then used to perform cortical cleaving hydrodissection and nuclear hydrodelineation until the lens could be freely rotated within the capsular bag. The lens nucleus was then disassembled and removed within the capsular bag and iris plane using phacoemulsification. Residual cortical material was removed using the 45-degree angled silicone I/A tip with 0.3mm port. The posterior capsule was carefully polished to remove as much residual lens epithelial cells as safely possible. The capsular bag was then inflated and the anterior chamber deepened with viscoelastic. The lens implant described above was inserted into the capsular bag using the ALISHA [place] Injector. A Kuglen hook was used to dial the IOL into position. Residual viscoelastic was then removed first from posterior to the IOL, then from the anterior chamber using the I/A handpiece. The lens implant was noted to center nicely within the capsular bag. The incisions were stromally hydrated, and the anterior chamber was reformed using BSS. Then 0.5cc of moxifloxacin 1.0mg/ml were injected into the capsular bag and anterior chamber. The incisions were checked with a Weck spear and found to be secure. Several drops of ophthalmic povidone-iodine 5% were then applied to the eye followed by two drops of Imprimis combination prednisolone/moxifloxacin/nepafenac solution. The drapes were removed and a clear plastic protective eye shield was placed over the eye. The patient was then returned to Same Day Surgery in stable condition.
[2021-02-24] MEDS: Normal Saline Flush 10 ML SYR (10:26)
[2021-02-24] MEDS: Heparin 500 UNITS/5 ML SYRINGE IVP (10:26)
--- NOTE | 2021-02-24 10:26 | W.ANESPOSTOP ---
Postoperative Evaluation Date, Time and Location Date Performed: 02/24/21 Time Performed: 10:10 Patient Location: Day Surgery Unit Vital Signs Most Recent Imported Vital Signs: Most Recent Vital Signs Temp Pulse Resp BP Pulse Ox 36.2 C L 69 16 91/59 L 98 02/24/21 10:01 02/24/21 10:01 02/24/21 10:01 02/24/21 10:01 02/24/21 10:01 Pain Score Most Recent Pain Score: Most Recent Pain Score Pain Level 0 02/24/21 10:01 Assessment Mental Status: Awake (Alert & Oriented to Patient Baseline) Airway and Respiratory Function: Patent airway with normal (patient baseline) respiratory exam Cardiovascular Function: Hemodynamically Stable Hydration Status: Adequately Hydrated Nausea & Vomiting: No Nausea or Vomiting Pain: Pt. Denies Any Pain Peripheral Nerve Block: Patient did not receive a nerve block
[2021-02-24 10:29] VITALS: BP 99/64; PULSE 64; RESP 16; TEMP 36.3; O2SAT 94
== END 2021-02-24 10:40 | disposition home or self-care (01) ==
PROVIDERS: PCP Nurse Practitioner Family; Visit Provider Ophthalmology
PROC: (CPT 66984; principal; 2021-02-24 10:00)
DX: H25.042 Posterior subcapsular polar age-related cataract, left eye (principal); J44.9 Chronic obstructive pulmonary disease, unspecified; G47.33 Obstructive sleep apnea (adult) (pediatric)
CPT/HCPCS: 66984; V2632; J2250

== ENCOUNTER → 2021-03-18 13:32 | Outpatient (BNVA) | payer MEDICARE, SELFPAY | PROVIDERS: PCP Nurse Practitioner Family; Referring Provider Nurse Practitioner Family; Visit Provider Nurse Practitioner Gerontology | DX: N99.89 Other postprocedural complications and disorders of genitourinary system (principal); R33.8 Other retention of urine; Z98.890 Other specified postprocedural states | CPT/HCPCS: 99214 ==

== ENCOUNTER 2021-03-24 00:51 | Outpatient (RCR) | payer MEDICARE, SELFPAY ==
[2021-03-03] MEDS: Normal Saline Flush 10 ML SYR IVP (12:35)
[2021-03-03 12:45] LABS: Abs Immature Grans 0.02 10^3/uL (0.0-0.06); Absolute Basophil Count 0.07 10^3/uL (0.0-0.2); Absolute Eosinophil Count 0.12 10^3/uL (0.0-0.7); Absolute Lymphocyte Count 1.23 10^3/uL (1.2-3.4); Absolute Monocyte Count 0.85 10^3/uL (0.1-0.8); Absolute Neutrophil Count 4.96 10^3/uL (1.2-6.7); Eosinophils % 1.7; HCT 43.4 % (40.0-50.0); HGB 14.2 g/dL (13.5-17.5); Immature Grans % 0.3; MCH 30.3 pg (27.0-33.0); MCHC 32.7 % (32.0-36.0); MCV 92.5 fL (80-95); MPV 9.4 fL (8.0-11.0); Monocytes % 11.7; Neutrophils % 68.3; Nucleated RBC 0 %; Platelet Count 234 10^3/uL (130-400); RBC 4.69 10^6/uL (4.36-5.78); RDW 13.7 % (11.8-14.1); RDW-SD 46.4 fL; WBC 7.25 10^3/uL (4.4-10.8)
[2021-03-03 13:15] LABS: ALT 30 U/L (16-63); AST 21 U/L (15-37); Albumin 3.8 g/dL (3.4-5.0); Alkaline Phosphatase 100 U/L (46-116); BUN 13 mg/dL (7-18); Bilirubin, Total 0.5 mg/dL (0.2-1.0); CREATININE 0.6 mg/dL (0.70-1.30); Calcium 8.9 mg/dL (8.5-10.1); Chloride 101 mmol/L (98-107); Glucose 86 mg/dL (74-106); Potassium 4.2 mmol/L (3.5-5.1); Sodium 137 mmol/L (136-145); TSH 4.26 uIU/mL (0.36-3.74); Total Protein 7.5 g/dL (6.4-8.2)
[2021-03-24] MEDS: Normal Saline Flush 10 ML SYR IVP (12:15)
[2021-03-24 12:23] LABS: Abs Immature Grans 0.02 10^3/uL (0.0-0.06); Absolute Basophil Count 0.06 10^3/uL (0.0-0.2); Absolute Eosinophil Count 0.12 10^3/uL (0.0-0.7); Absolute Lymphocyte Count 1.22 10^3/uL (1.2-3.4); Absolute Monocyte Count 0.79 10^3/uL (0.1-0.8); Absolute Neutrophil Count 3.89 10^3/uL (1.2-6.7); HCT 44.6 % (40.0-50.0); HGB 14.6 g/dL (13.5-17.5); Immature Grans % 0.3; MCH 30.2 pg (27.0-33.0); MCHC 32.7 % (32.0-36.0); MCV 92.1 fL (80-95); MPV 9.7 fL (8.0-11.0); Neutrophils % 63.7; Nucleated RBC 0 %; Platelet Count 207 10^3/uL (130-400); RBC 4.84 10^6/uL (4.36-5.78); RDW 13.4 % (11.8-14.1); RDW-SD 45.9 fL
[2021-03-24 12:44] LABS: ALT 24 U/L (16-63); AST 22 U/L (15-37); Albumin 3.8 g/dL (3.4-5.0); Alkaline Phosphatase 84 U/L (46-116); Anion Gap 7.4 mmol/L (3-11); BUN 13 mg/dL (7-18); Bilirubin, Total 0.4 mg/dL (0.2-1.0); CO2 29.6 mmol/L (21.0-32.0); CREATININE 0.6 mg/dL (0.70-1.30); Calcium 8.6 mg/dL (8.5-10.1); Chloride 101 mmol/L (98-107); Glucose 105 mg/dL (74-106); Potassium 4.3 mmol/L (3.5-5.1); Sodium 138 mmol/L (136-145); TSH 4.05 uIU/mL (0.36-3.74); Total Protein 7.3 g/dL (6.4-8.2)
== END 2021-03-30 23:59 | disposition home or self-care (01) ==
LOC: INF 00:51
PROVIDERS: PCP Nurse Practitioner Family; Visit Provider Internal Medicine Hematology & Oncology
DX: C06.9 Malignant neoplasm of mouth, unspecified (principal); I48.91 Unspecified atrial fibrillation; E03.4 Atrophy of thyroid (acquired); E03.9 Hypothyroidism, unspecified; Z45.2 Encounter for adjustment and management of vascular access device
CPT/HCPCS: 36591; 80053; 84443; 85025

== ENCOUNTER 2021-04-14 02:46 | Outpatient (RCR) | payer MEDICARE, SELFPAY ==
[2021-04-14] MEDS: Normal Saline Flush 10 ML SYR IVP (09:35)
[2021-04-14 09:44] LABS: Abs Immature Grans 0.01 10^3/uL (0.0-0.06); Absolute Basophil Count 0.07 10^3/uL (0.0-0.2); Absolute Eosinophil Count 0.13 10^3/uL (0.0-0.7); Absolute Lymphocyte Count 1.12 10^3/uL (1.2-3.4); Absolute Monocyte Count 0.77 10^3/uL (0.1-0.8); Absolute Neutrophil Count 4.14 10^3/uL (1.2-6.7); Basophils % 1.1; Eosinophils % 2.1; HCT 44.4 % (40.0-50.0); HGB 14.7 g/dL (13.5-17.5); Immature Grans % 0.2; Lymphocytes % 17.9; MCH 29.9 pg (27.0-33.0); MCHC 33.1 % (32.0-36.0); MCV 90.2 fL (80-95); MPV 9.9 fL (8.0-11.0); Monocytes % 12.3; Neutrophils % 66.4; Nucleated RBC 0 %; Platelet Count 205 10^3/uL (130-400); RBC 4.92 10^6/uL (4.36-5.78); RDW 13.6 % (11.8-14.1); RDW-SD 45.1 fL; WBC 6.24 10^3/uL (4.4-10.8)
[2021-04-14 10:39] LABS: Albumin 3.9 g/dL (3.4-5.0); Alkaline Phosphatase 78 U/L (46-116); BUN 11 mg/dL (7-18); Bilirubin, Total 0.5 mg/dL (0.2-1.0); CREATININE 0.6 mg/dL (0.70-1.30); Calcium 8.6 mg/dL (8.5-10.1); Glucose 96 mg/dL (74-106); Total Protein 7.5 g/dL (6.4-8.2)
[2021-04-14 10:40] LABS: ALT 29 U/L (16-63); AST 23 U/L (15-37); Anion Gap 7.6 mmol/L (3-11); CO2 30.4 mmol/L (21.0-32.0); Chloride 102 mmol/L (98-107); Potassium 4.2 mmol/L (3.5-5.1); Sodium 140 mmol/L (136-145); TSH 16.17 uIU/mL (0.36-3.74)
[2021-04-14 16:13] LABS: FREE T4 0.92 ng/dL (0.76-1.46)
== END 2021-04-29 23:59 | disposition home or self-care (01) ==
LOC: INF 02:46
PROVIDERS: PCP Nurse Practitioner Family; Visit Provider Internal Medicine Hematology & Oncology
DX: C06.9 Malignant neoplasm of mouth, unspecified (principal); I48.91 Unspecified atrial fibrillation; E03.4 Atrophy of thyroid (acquired); Z45.2 Encounter for adjustment and management of vascular access device; E35 Disorders of endocrine glands in diseases classified elsewhere
CPT/HCPCS: 36591; 80053; 84439; 84443; 85025

== ENCOUNTER 2021-05-26 10:00 | Outpatient (RCR) | payer MEDICARE, SELFPAY ==
[2021-05-05] MEDS: Normal Saline Flush 10 ML SYR IVP (09:32)
[2021-05-05 09:37] LABS: Abs Immature Grans 0.01 10^3/uL (0.0-0.06); Absolute Basophil Count 0.04 10^3/uL (0.0-0.2); Absolute Eosinophil Count 0.13 10^3/uL (0.0-0.7); Absolute Lymphocyte Count 0.92 10^3/uL (1.2-3.4); Absolute Monocyte Count 0.92 10^3/uL (0.1-0.8); Absolute Neutrophil Count 4.87 10^3/uL (1.2-6.7); Basophils % 0.6; Eosinophils % 1.9; HCT 44.5 % (40.0-50.0); HGB 14.6 g/dL (13.5-17.5); Immature Grans % 0.1; Lymphocytes % 13.4; MCH 29.7 pg (27.0-33.0); MCHC 32.8 % (32.0-36.0); MCV 90.4 fL (80-95); MPV 9.7 fL (8.0-11.0); Monocytes % 13.4; Neutrophils % 70.6; Nucleated RBC 0 %; Platelet Count 197 10^3/uL (130-400); RBC 4.92 10^6/uL (4.36-5.78); RDW-SD 46.6 fL; WBC 6.89 10^3/uL (4.4-10.8)
[2021-05-05 10:00] LABS: ALT 23 U/L (16-63); AST 22 U/L (15-37); Albumin 3.8 g/dL (3.4-5.0); Alkaline Phosphatase 83 U/L (46-116); Anion Gap 5.9 mmol/L (3-11); BUN 12 mg/dL (7-18); Bilirubin, Total 0.5 mg/dL (0.2-1.0); CO2 29.1 mmol/L (21.0-32.0); CREATININE 0.6 mg/dL (0.70-1.30); Calcium 8.4 mg/dL (8.5-10.1); Chloride 101 mmol/L (98-107); FREE T4 1.28 ng/dL (0.76-1.46); Glucose 91 mg/dL (74-106); Potassium 4.1 mmol/L (3.5-5.1); Sodium 136 mmol/L (136-145); TSH 14.87 uIU/mL (0.36-3.74); Total Protein 7.3 g/dL (6.4-8.2)
[2021-05-26] MEDS: Normal Saline Flush 10 ML SYR IVP (09:50)
[2021-05-26 10:07] LABS: Abs Immature Grans 0.03 10^3/uL (0.0-0.06); Absolute Basophil Count 0.07 10^3/uL (0.0-0.2); Absolute Eosinophil Count 0.15 10^3/uL (0.0-0.7); Absolute Lymphocyte Count 0.88 10^3/uL (1.2-3.4); Absolute Monocyte Count 1.13 10^3/uL (0.1-0.8); Basophils % 0.8; Eosinophils % 1.8; HCT 40.6 % (40.0-50.0); HGB 13.3 g/dL (13.5-17.5); Immature Grans % 0.4; Lymphocytes % 10.5; MCH 29.4 pg (27.0-33.0); MCHC 32.8 % (32.0-36.0); MCV 89.6 fL (80-95); MPV 8.5 fL (8.0-11.0); Monocytes % 13.5; Nucleated RBC 0 %; Platelet Count 366 10^3/uL (130-400); RBC 4.53 10^6/uL (4.36-5.78); RDW 14.1 % (11.8-14.1); RDW-SD 45.9 fL; WBC 8.36 10^3/uL (4.4-10.8)
[2021-05-26 10:29] LABS: ALT 15 U/L (16-63); AST 18 U/L (15-37); Albumin 3.1 g/dL (3.4-5.0); Alkaline Phosphatase 109 U/L (46-116); Anion Gap 6.6 mmol/L (3-11); BUN 9 mg/dL (7-18); Bilirubin, Total 0.4 mg/dL (0.2-1.0); CO2 29.4 mmol/L (21.0-32.0); CREATININE 0.5 mg/dL (0.70-1.30); Calcium 8.4 mg/dL (8.5-10.1); Chloride 99 mmol/L (98-107); FREE T4 1.61 ng/dL (0.76-1.46); Glucose 88 mg/dL (74-106); Sodium 135 mmol/L (136-145); TSH 3.19 uIU/mL (0.36-3.74); Total Protein 7.1 g/dL (6.4-8.2)
== END 2021-05-30 23:59 | disposition home or self-care (01) ==
LOC: INF 10:00
PROVIDERS: PCP Nurse Practitioner Family; Visit Provider Internal Medicine Hematology & Oncology
DX: C06.9 Malignant neoplasm of mouth, unspecified (principal); E03.4 Atrophy of thyroid (acquired); Z45.2 Encounter for adjustment and management of vascular access device; E35 Disorders of endocrine glands in diseases classified elsewhere; I48.91 Unspecified atrial fibrillation
CPT/HCPCS: 36591; 80053; 84439; 84443; 85025

== ENCOUNTER 2021-08-28 02:56 | Outpatient (RCR) | payer MEDICARE, SELFPAY ==
[2021-08-15] MEDS: Normal Saline Flush 10 ML SYR IVP (10:53)
[2021-08-15 11:22] LABS: Abs Immature Grans 0.12 10^3/uL (0.0-0.06); Absolute Basophil Count 0.09 10^3/uL (0.0-0.2); Absolute Eosinophil Count 0.05 10^3/uL (0.0-0.7); Absolute Lymphocyte Count 1.05 10^3/uL (1.2-3.4); Absolute Monocyte Count 1.42 10^3/uL (0.1-0.8); Absolute Neutrophil Count 7.08 10^3/uL (1.2-6.7); Basophils % 0.9; Eosinophils % 0.5; HCT 42.8 % (40.0-50.0); Immature Grans % 1.2; Lymphocytes % 10.7; MCHC 32.7 % (32.0-36.0); MCV 91.6 fL (80-95); MPV 9.1 fL (8.0-11.0); Monocytes % 14.5; Neutrophils % 72.2; Nucleated RBC 0 %; Platelet Count 397 10^3/uL (130-400); RBC 4.67 10^6/uL (4.36-5.78); RDW 15.1 % (11.8-14.1); RDW-SD 51.2 fL; WBC 9.81 10^3/uL (4.4-10.8)
[2021-08-15 11:48] LABS: ALT 93 U/L (16-63); AST 79 U/L (15-37); Alkaline Phosphatase 951 U/L (46-116); Anion Gap 8.4 mmol/L (3-11); BUN 11 mg/dL (7-18); Bilirubin, Total 0.6 mg/dL (0.2-1.0); CO2 28.6 mmol/L (21.0-32.0); CREATININE 0.6 mg/dL (0.70-1.30); Calcium 8.5 mg/dL (8.5-10.1); Chloride 97 mmol/L (98-107); Glucose 90 mg/dL (74-106); Potassium 4.2 mmol/L (3.5-5.1); Sodium 134 mmol/L (136-145); TSH 1.71 uIU/mL (0.36-3.74)
[2021-08-28] MEDS: Heparin 500 UNITS/5 ML SYRINGE IV (08:44)
[2021-08-28] MEDS: Normal Saline Flush 10 ML SYR IVP (08:44)
[2021-08-28 09:11] LABS: ALT 53 U/L (16-63); AST 39 U/L (15-37); Albumin 2.8 g/dL (3.4-5.0); Alkaline Phosphatase 951 U/L (46-116); Anion Gap 7.4 mmol/L (3-11); BUN 11 mg/dL (7-18); Bilirubin, Total 0.5 mg/dL (0.2-1.0); CO2 29.6 mmol/L (21.0-32.0); CREATININE 0.7 mg/dL (0.70-1.30); Calcium 8.2 mg/dL (8.5-10.1); Chloride 101 mmol/L (98-107); Glucose 93 mg/dL (74-106); Sodium 138 mmol/L (136-145); Total Protein 6.7 g/dL (6.4-8.2)
[2021-08-28 09:52] LABS: GGT 1736 U/L (15-85)
== END 2021-08-28 23:59 | disposition home or self-care (01) ==
LOC: INF 02:56
PROVIDERS: PCP Nurse Practitioner Family; Visit Provider Internal Medicine Hematology & Oncology
DX: C06.9 Malignant neoplasm of mouth, unspecified (principal); E03.9 Hypothyroidism, unspecified; R74.8 Abnormal levels of other serum enzymes; Z45.2 Encounter for adjustment and management of vascular access device; I48.91 Unspecified atrial fibrillation
CPT/HCPCS: 36591; 80053; 82977; 84443; 85025

== ENCOUNTER 2021-09-24 03:37 | Outpatient (RCR) | payer MEDICARE, SELFPAY ==
[2021-09-09] MEDS: Heparin 500 UNITS/5 ML SYRINGE (12:02)
[2021-09-09] MEDS: Normal Saline Flush 10 ML SYR IVP (12:03)
[2021-09-09 12:15] LABS: Abs Immature Grans 0.06 10^3/uL (0.0-0.06); Absolute Basophil Count 0.12 10^3/uL (0.0-0.2); Absolute Eosinophil Count 0.08 10^3/uL (0.0-0.7); Absolute Lymphocyte Count 0.73 10^3/uL (1.2-3.4); Absolute Neutrophil Count 10.12 10^3/uL (1.2-6.7); Eosinophils % 0.7; HCT 40.3 % (40.0-50.0); HGB 13.1 g/dL (13.5-17.5); Immature Grans % 0.5; Lymphocytes % 6.1; MCH 30.5 pg (27.0-33.0); MCHC 32.5 % (32.0-36.0); MCV 93.9 fL (80-95); MPV 9.1 fL (8.0-11.0); Monocytes % 7.6; Neutrophils % 84.1; Nucleated RBC 0 %; Platelet Count 363 10^3/uL (130-400); RBC 4.29 10^6/uL (4.36-5.78); RDW 14.7 % (11.8-14.1); RDW-SD 50.7 fL; WBC 12.03 10^3/uL (4.4-10.8)
[2021-09-09 12:16] LABS: Absolute Monocyte Count 0.91 10^3/uL (0.1-0.8)
[2021-09-09 12:36] LABS: ALT 47 U/L (16-63); AST 43 U/L (15-37); Albumin 3.3 g/dL (3.4-5.0); Alkaline Phosphatase 537 U/L (46-116); Anion Gap 9.1 mmol/L (3-11); BUN 12 mg/dL (7-18); Bilirubin, Total 0.4 mg/dL (0.2-1.0); CO2 25.9 mmol/L (21.0-32.0); CREATININE 0.8 mg/dL (0.70-1.30); Calcium 8.5 mg/dL (8.5-10.1); Chloride 99 mmol/L (98-107); Glucose 126 mg/dL (74-106); Potassium 4.3 mmol/L (3.5-5.1); Sodium 134 mmol/L (136-145); TSH 4.93 uIU/mL (0.36-3.74); Total Protein 7.2 g/dL (6.4-8.2)
[2021-09-09 12:47] LABS: GGT 1079 U/L (15-85)
[2021-09-24] MEDS: Heparin 500 UNITS/5 ML SYRINGE IV (11:34)
[2021-09-24] MEDS: Normal Saline Flush 10 ML SYR IVP (11:34)
[2021-09-24 12:00] LABS: ALT 37 U/L (16-63); AST 28 U/L (15-37); Albumin 3.4 g/dL (3.4-5.0); Alkaline Phosphatase 256 U/L (46-116); Anion Gap 5.2 mmol/L (3-11); BUN 11 mg/dL (7-18); Bilirubin, Total 0.4 mg/dL (0.2-1.0); CO2 27.8 mmol/L (21.0-32.0); CREATININE 0.6 mg/dL (0.70-1.30); Calcium 8.4 mg/dL (8.5-10.1); Chloride 100 mmol/L (98-107); GGT 424 U/L (15-85); Glucose 121 mg/dL (74-106); Potassium 3.8 mmol/L (3.5-5.1); Sodium 133 mmol/L (136-145); Total Protein 7.5 g/dL (6.4-8.2)
== END 2021-09-27 23:59 | disposition home or self-care (01) ==
LOC: INF 03:37
PROVIDERS: PCP Nurse Practitioner Family; Visit Provider Internal Medicine Hematology & Oncology
DX: E03.9 Hypothyroidism, unspecified (principal); R74.9 Abnormal serum enzyme level, unspecified; Z45.2 Encounter for adjustment and management of vascular access device; C06.9 Malignant neoplasm of mouth, unspecified; I48.91 Unspecified atrial fibrillation; R74.8 Abnormal levels of other serum enzymes
CPT/HCPCS: 36591; 80053; 82977; 84443; 85025

== ENCOUNTER 2021-10-21 02:26 | Outpatient (RCR) | payer MEDICARE, SELFPAY ==
[2021-10-21] MEDS: Normal Saline Flush 10 ML SYR IVP (11:41)
[2021-10-21] MEDS: Heparin 500 UNITS/5 ML SYRINGE IV (11:41)
[2021-10-21 11:49] LABS: Abs Immature Grans 0.03 10^3/uL (0.0-0.06); Absolute Basophil Count 0.07 10^3/uL (0.0-0.2); Absolute Eosinophil Count 0.07 10^3/uL (0.0-0.7); Absolute Lymphocyte Count 0.75 10^3/uL (1.2-3.4); Absolute Monocyte Count 0.77 10^3/uL (0.1-0.8); Absolute Neutrophil Count 8.71 10^3/uL (1.2-6.7); Basophils % 0.7; Eosinophils % 0.7; HCT 41.8 % (40.0-50.0); HGB 13.5 g/dL (13.5-17.5); Immature Grans % 0.3; Lymphocytes % 7.2; MCH 30.4 pg (27.0-33.0); MCHC 32.3 % (32.0-36.0); MCV 94 fL (80-95); MPV 9.3 fL (8.0-11.0); Monocytes % 7.4; Neutrophils % 83.7; Platelet Count 258 10^3/uL (130-400); RBC 4.44 10^6/uL (4.36-5.78); RDW 13.5 % (11.8-14.1); RDW-SD 46.8 fL
[2021-10-21 11:59] LABS: ALT 26 U/L (16-63); AST 24 U/L (15-37); Albumin 3.3 g/dL (3.4-5.0); Alkaline Phosphatase 133 U/L (46-116); Anion Gap 5.7 mmol/L (3-11); BUN 11 mg/dL (7-18); Bilirubin, Total 0.4 mg/dL (0.2-1.0); CO2 28.3 mmol/L (21.0-32.0); CREATININE 0.6 mg/dL (0.70-1.30); Calcium 8.4 mg/dL (8.5-10.1); Chloride 103 mmol/L (98-107); Glucose 123 mg/dL (74-106); Potassium 4.2 mmol/L (3.5-5.1); Sodium 137 mmol/L (136-145); TSH 4.25 uIU/mL (0.36-3.74); Total Protein 7.2 g/dL (6.4-8.2)
== END 2021-10-28 23:59 | disposition home or self-care (01) ==
LOC: INF 02:26
PROVIDERS: PCP Nurse Practitioner Family; Visit Provider Internal Medicine Hematology & Oncology
DX: C06.9 Malignant neoplasm of mouth, unspecified (principal); I48.91 Unspecified atrial fibrillation; Z45.2 Encounter for adjustment and management of vascular access device
CPT/HCPCS: 36591; 80053; 84443; 85025

== ENCOUNTER 2021-11-19 01:46 | Outpatient (RCR) | payer MEDICARE, SELFPAY ==
[2021-11-19] MEDS: Normal Saline Flush 10 ML SYR IVP (11:28)
[2021-11-19] MEDS: Heparin 500 UNITS/5 ML SYRINGE IV (11:28)
[2021-11-19 11:39] LABS: Abs Immature Grans 0.03 10^3/uL (0.0-0.06); Absolute Basophil Count 0.09 10^3/uL (0.0-0.2); Absolute Lymphocyte Count 0.95 10^3/uL (1.2-3.4); Absolute Monocyte Count 1.01 10^3/uL (0.1-0.8); Basophils % 1.1; Eosinophils % 1.2; HCT 43.9 % (40.0-50.0); HGB 14.4 g/dL (13.5-17.5); Immature Grans % 0.4; Lymphocytes % 11.8; MCH 29.8 pg (27.0-33.0); MCHC 32.8 % (32.0-36.0); MCV 91 fL (80-95); MPV 9.3 fL (8.0-11.0); Monocytes % 12.5; Platelet Count 270 10^3/uL (130-400); RBC 4.83 10^6/uL (4.36-5.78); RDW 13.6 % (11.8-14.1); RDW-SD 45.7 fL; WBC 8.08 10^3/uL (4.4-10.8)
[2021-11-19 12:02] LABS: ALT 25 U/L (16-63); AST 21 U/L (15-37); Albumin 3.5 g/dL (3.4-5.0); Alkaline Phosphatase 116 U/L (46-116); Anion Gap 7.7 mmol/L (3-11); BUN 12 mg/dL (7-18); Bilirubin, Total 0.4 mg/dL (0.2-1.0); CO2 27.3 mmol/L (21.0-32.0); CREATININE 0.6 mg/dL (0.70-1.30); Calcium 8.6 mg/dL (8.5-10.1); Chloride 99 mmol/L (98-107); GGT 59 U/L (15-85); Glucose 118 mg/dL (74-106); Sodium 134 mmol/L (136-145); TSH 2.82 uIU/mL (0.36-3.74); Total Protein 7.5 g/dL (6.4-8.2)
== END 2021-11-27 23:59 | disposition home or self-care (01) ==
LOC: INF 01:46
PROVIDERS: PCP Nurse Practitioner Family; Visit Provider Internal Medicine Hematology & Oncology
DX: E03.9 Hypothyroidism, unspecified (principal); R74.9 Abnormal serum enzyme level, unspecified; Z45.2 Encounter for adjustment and management of vascular access device
CPT/HCPCS: 36591; 80053; 82977; 84443; 85025

== ENCOUNTER 2021-12-15 01:18 | Outpatient (RCR) | payer MEDICARE, SELFPAY ==
[2021-12-15 10:11] LABS: Abs Immature Grans 0.02 10^3/uL (0.0-0.06); Absolute Basophil Count 0.09 10^3/uL (0.0-0.2); Absolute Eosinophil Count 0.12 10^3/uL (0.0-0.7); Absolute Lymphocyte Count 1.05 10^3/uL (1.2-3.4); Absolute Monocyte Count 0.91 10^3/uL (0.1-0.8); Absolute Neutrophil Count 5.86 10^3/uL (1.2-6.7); Basophils % 1.1; Eosinophils % 1.5; HCT 44.7 % (40.0-50.0); HGB 14.8 g/dL (13.5-17.5); Immature Grans % 0.2; MCH 29.5 pg (27.0-33.0); MCHC 33.1 % (32.0-36.0); MCV 89 fL (80-95); MPV 9.3 fL (8.0-11.0); Monocytes % 11.3; Neutrophils % 72.9; Platelet Count 256 10^3/uL (130-400); RBC 5.02 10^6/uL (4.36-5.78); RDW 13.5 % (11.8-14.1); RDW-SD 44.2 fL; WBC 8.05 10^3/uL (4.4-10.8)
[2021-12-15 10:26] LABS: ALT 24 U/L (16-63); AST 21 U/L (15-37); Albumin 3.5 g/dL (3.4-5.0); Alkaline Phosphatase 109 U/L (46-116); Anion Gap 8.5 mmol/L (3-11); BUN 13 mg/dL (7-18); Bilirubin, Total 0.5 mg/dL (0.2-1.0); CO2 29.5 mmol/L (21.0-32.0); CREATININE 0.5 mg/dL (0.70-1.30); Calcium 8.6 mg/dL (8.5-10.1); Chloride 99 mmol/L (98-107); Glucose 91 mg/dL (74-106); Potassium 4.1 mmol/L (3.5-5.1); Sodium 137 mmol/L (136-145); Total Protein 7.5 g/dL (6.4-8.2)
[2021-12-15] MEDS: Normal Saline Flush 10 ML SYR IVP (10:53)
[2021-12-15] MEDS: Heparin 500 UNITS/5 ML SYRINGE IV (10:53)
== END 2021-12-28 23:59 | disposition home or self-care (01) ==
LOC: INF 01:18
PROVIDERS: Nurse Practitioner Gerontology; PCP Nurse Practitioner Family; Visit Provider Internal Medicine Hematology & Oncology
DX: C06.9 Malignant neoplasm of mouth, unspecified (principal); Z45.2 Encounter for adjustment and management of vascular access device
CPT/HCPCS: 36591; 80053; 85025

== ENCOUNTER 2022-01-13 01:25 | Outpatient (RCR) | payer MEDICARE, SELFPAY ==
[2022-01-13] MEDS: Normal Saline Flush 10 ML SYR IVP (11:44)
[2022-01-13] MEDS: Heparin 500 UNITS/5 ML SYRINGE (11:44)
[2022-01-13 11:50] LABS: Abs Immature Grans 0.02 10^3/uL (0.0-0.06); Absolute Basophil Count 0.07 10^3/uL (0.0-0.2); Absolute Eosinophil Count 0.08 10^3/uL (0.0-0.7); Absolute Lymphocyte Count 1.19 10^3/uL (1.2-3.4); Absolute Monocyte Count 0.83 10^3/uL (0.1-0.8); Absolute Neutrophil Count 4.89 10^3/uL (1.2-6.7); Eosinophils % 1.1; HCT 42.1 % (40.0-50.0); HGB 13.8 g/dL (13.5-17.5); Immature Grans % 0.3; Lymphocytes % 16.8; MCH 29.4 pg (27.0-33.0); MCHC 32.8 % (32.0-36.0); MCV 90 fL (80-95); MPV 9.4 fL (8.0-11.0); Monocytes % 11.7; Neutrophils % 69.1; Platelet Count 209 10^3/uL (130-400); RDW 14.7 % (11.8-14.1); RDW-SD 47.9 fL; WBC 7.08 10^3/uL (4.4-10.8)
[2022-01-13 12:15] LABS: ALT 29 U/L (16-63); AST 22 U/L (15-37); Albumin 3.6 g/dL (3.4-5.0); Alkaline Phosphatase 83 U/L (46-116); Anion Gap 5.5 mmol/L (3-11); BUN 13 mg/dL (7-18); Bilirubin, Total 0.4 mg/dL (0.2-1.0); CO2 30.5 mmol/L (21.0-32.0); CREATININE 0.6 mg/dL (0.70-1.30); Calcium 8.5 mg/dL (8.5-10.1); Chloride 99 mmol/L (98-107); Glucose 120 mg/dL (74-106); Potassium 4.2 mmol/L (3.5-5.1); Sodium 135 mmol/L (136-145); TSH 2.97 uIU/mL (0.36-3.74); Total Protein 7.3 g/dL (6.4-8.2)
== END 2022-01-28 23:59 | disposition home or self-care (01) ==
LOC: INF 01:25
PROVIDERS: Nurse Practitioner Gerontology; PCP Nurse Practitioner Family; Visit Provider Internal Medicine Hematology & Oncology
DX: E03.9 Hypothyroidism, unspecified (principal); Z45.2 Encounter for adjustment and management of vascular access device; C06.9 Malignant neoplasm of mouth, unspecified
CPT/HCPCS: 36591; 80053; 84443; 85025

== ENCOUNTER 2022-02-16 03:08 | Outpatient (RCR) | payer MEDICARE, SELFPAY ==
[2022-02-16] MEDS: Normal Saline Flush 10 ML SYR IVP (09:47)
[2022-02-16] MEDS: Heparin 500 UNITS/5 ML SYRINGE IV (09:48)
[2022-02-16 10:24] LABS: ALT 31 U/L (16-63); AST 28 U/L (15-37); Albumin 3.8 g/dL (3.4-5.0); Alkaline Phosphatase 94 U/L (46-116); Anion Gap 6.6 mmol/L (3-11); BUN 15 mg/dL (7-18); Bilirubin, Total 0.6 mg/dL (0.2-1.0); CO2 30.4 mmol/L (21.0-32.0); CREATININE 0.6 mg/dL (0.70-1.30); Calcium 8.9 mg/dL (8.5-10.1); Chloride 98 mmol/L (98-107); Estimated GFR 100.67 (mL/min/1.73m2); Glucose 96 mg/dL (74-106); Potassium 4.1 mmol/L (3.5-5.1); Sodium 135 mmol/L (136-145); Total Protein 7.6 g/dL (6.4-8.2)
== END 2022-02-27 23:59 | disposition home or self-care (01) ==
LOC: INF 03:08
PROVIDERS: Nurse Practitioner Gerontology; PCP Nurse Practitioner Family; Visit Provider Internal Medicine Hematology & Oncology
DX: C06.9 Malignant neoplasm of mouth, unspecified (principal); Z45.2 Encounter for adjustment and management of vascular access device
CPT/HCPCS: 36591; 80053

== ENCOUNTER 2022-05-28 01:55 | Outpatient (RCR) | payer MEDICARE, SELFPAY ==
[2022-05-28] MEDS: Normal Saline Flush 10 ML SYR IVP (11:29)
[2022-05-28] MEDS: Heparin 500 UNITS/5 ML SYRINGE IV (11:29)
[2022-05-28 12:00] LABS: Abs Immature Grans 0.02 10^3/uL (0.0-0.06); Absolute Basophil Count 0.07 10^3/uL (0.0-0.2); Absolute Eosinophil Count 0.14 10^3/uL (0.0-0.7); Absolute Lymphocyte Count 1.16 10^3/uL (1.2-3.4); Absolute Monocyte Count 0.96 10^3/uL (0.1-0.8); Basophils % 0.9; Eosinophils % 1.8; HCT 45.8 % (40.0-50.0); HGB 15.9 g/dL (13.5-17.5); Immature Grans % 0.3; Lymphocytes % 14.6; MCH 31.9 pg (27.0-33.0); MCHC 34.7 % (32.0-36.0); MCV 92 fL (80-95); Monocytes % 12.1; Neutrophils % 70.3; Platelet Count 235 10^3/uL (130-400); RBC 4.99 10^6/uL (4.36-5.78); RDW 13.2 % (11.8-14.1); WBC 7.95 10^3/uL (4.4-10.8)
[2022-05-28 12:19] LABS: ALT 27 U/L (16-63); AST 23 U/L (15-37); Albumin 3.8 g/dL (3.4-5.0); Alkaline Phosphatase 88 U/L (46-116); Anion Gap 6.1 mmol/L (3-11); BUN 13 mg/dL (7-18); Bilirubin, Direct 0.1 mg/dL (0.0-0.2); Bilirubin, Total 0.4 mg/dL (0.2-1.0); CO2 28.9 mmol/L (21.0-32.0); CREATININE 0.7 mg/dL (0.70-1.30); Calcium 8.5 mg/dL (8.5-10.1); Chloride 99 mmol/L (98-107); Estimated GFR 95.49 (mL/min/1.73m2); Glucose 107 mg/dL (74-106); Potassium 4.3 mmol/L (3.5-5.1); Sodium 134 mmol/L (136-145); Total Protein 7.4 g/dL (6.4-8.2)
== END 2022-05-30 23:59 | disposition home or self-care (01) ==
LOC: INF 01:55
PROVIDERS: PCP Nurse Practitioner Family; Visit Provider Internal Medicine
DX: C44.42 Squamous cell carcinoma of skin of scalp and neck (principal); Z45.2 Encounter for adjustment and management of vascular access device
CPT/HCPCS: 36591; 80048; 80076; 85025

== ENCOUNTER 2022-09-11 10:37 | Outpatient (RCR) | payer MEDICARE, SELFPAY ==
[2022-09-11] MEDS: Heparin 500 UNITS/5 ML SYRINGE (10:45)
[2022-09-11] MEDS: Normal Saline Flush 10 ML SYR IVP (10:46)
[2022-09-11 11:14] LABS: CREATININE 0.6 mg/dL (0.70-1.30); Estimated GFR 100.04 (mL/min/1.73m2)
== END 2022-09-27 23:59 | disposition home or self-care (01) ==
LOC: INF 10:37
PROVIDERS: PCP Nurse Practitioner Family; Visit Provider Preventive Medicine Undersea and Hyperbaric Medicine
DX: Z45.2 Encounter for adjustment and management of vascular access device (principal); C06.9 Malignant neoplasm of mouth, unspecified
CPT/HCPCS: 36591; 82565

== ENCOUNTER 2022-10-27 03:18 | Outpatient (RCR) | payer MEDICARE, SELFPAY ==
[2022-09-28] MEDS: Heparin 500 UNITS/5 ML SYRINGE (12:07)
[2022-09-28] MEDS: Normal Saline Flush 10 ML SYR IVP (12:07)
[2022-09-28 12:33] LABS: Abs Immature Grans 0.05 10^3/uL (0.0-0.06); Absolute Basophil Count 0.09 10^3/uL (0.0-0.2); Absolute Eosinophil Count 0.16 10^3/uL (0.0-0.7); Absolute Lymphocyte Count 0.99 10^3/uL (1.2-3.4); Absolute Monocyte Count 1.09 10^3/uL (0.1-0.8); Absolute Neutrophil Count 7.02 10^3/uL (1.2-6.7); Eosinophils % 1.7; HCT 46.3 % (40.0-50.0); HGB 15.8 g/dL (13.5-17.5); Immature Grans % 0.5; Lymphocytes % 10.5; MCH 30.5 pg (27.0-33.0); MCHC 34.1 % (32.0-36.0); MCV 89 fL (80-95); MPV 9.5 fL (8.0-11.0); Monocytes % 11.6; Neutrophils % 74.7; Platelet Count 257 10^3/uL (130-400); RBC 5.18 10^6/uL (4.36-5.78); RDW 13.2 % (11.8-14.1); RDW-SD 43.4 fL
[2022-09-28 12:49] LABS: ALT 22 U/L (16-63); AST 20 U/L (15-37); Albumin 3.2 g/dL (3.4-5.0); Alkaline Phosphatase 133 U/L (46-116); Anion Gap 6.7 mmol/L (3-11); BUN 13 mg/dL (7-18); Bilirubin, Total 0.3 mg/dL (0.2-1.0); CO2 26.3 mmol/L (21.0-32.0); CREATININE 0.6 mg/dL (0.70-1.30); Calcium 8.7 mg/dL (8.5-10.1); Chloride 101 mmol/L (98-107); Estimated GFR 100.04 (mL/min/1.73m2); Glucose 106 mg/dL (74-106); Magnesium 1.7 mg/dL (1.8-2.4); Potassium 4.4 mmol/L (3.5-5.1); Sodium 134 mmol/L (136-145); Total Protein 8.2 g/dL (6.4-8.2)
[2022-10-05 12:32] LABS: Absolute Basophil Count 0.08 10^3/uL (0.0-0.2); Absolute Eosinophil Count 0.19 10^3/uL (0.0-0.7); Absolute Lymphocyte Count 1.17 10^3/uL (1.2-3.4); Absolute Monocyte Count 1.34 10^3/uL (0.1-0.8); Absolute Neutrophil Count 8.75 10^3/uL (1.2-6.7); Basophils % 0.7; Eosinophils % 1.6; HCT 44.5 % (40.0-50.0); HGB 15.4 g/dL (13.5-17.5); Immature Grans % 0.9; Lymphocytes % 10.1; MCH 30.9 pg (27.0-33.0); MCHC 34.6 % (32.0-36.0); MCV 89 fL (80-95); MPV 9.6 fL (8.0-11.0); Monocytes % 11.5; Neutrophils % 75.2; Platelet Count 306 10^3/uL (130-400); RBC 4.99 10^6/uL (4.36-5.78); RDW 13.2 % (11.8-14.1); RDW-SD 42.7 fL; WBC 11.63 10^3/uL (4.4-10.8)
[2022-10-05 13:00] LABS: ALT 24 U/L (16-63); AST 19 U/L (15-37); Albumin 3.3 g/dL (3.4-5.0); Alkaline Phosphatase 109 U/L (46-116); Anion Gap 10.6 mmol/L (3-11); BUN 12 mg/dL (7-18); Bilirubin, Total 0.4 mg/dL (0.2-1.0); CO2 25.4 mmol/L (21.0-32.0); CREATININE 0.5 mg/dL (0.70-1.30); Calcium 8.7 mg/dL (8.5-10.1); Chloride 98 mmol/L (98-107); Estimated GFR 105.71 (mL/min/1.73m2); Glucose 80 mg/dL (74-106); Magnesium 1.6 mg/dL (1.8-2.4); Potassium 3.8 mmol/L (3.5-5.1); Sodium 134 mmol/L (136-145); Total Protein 7.9 g/dL (6.4-8.2)
[2022-10-05] MEDS: Normal Saline Flush 10 ML SYR IVP (14:34)
[2022-10-12] MEDS: Normal Saline Flush 10 ML SYR IVP (12:09)
[2022-10-12 12:21] LABS: Abs Immature Grans 0.05 10^3/uL (0.0-0.06); Absolute Basophil Count 0.06 10^3/uL (0.0-0.2); Absolute Eosinophil Count 0.15 10^3/uL (0.0-0.7); Absolute Lymphocyte Count 0.98 10^3/uL (1.2-3.4); Absolute Monocyte Count 1.17 10^3/uL (0.1-0.8); Absolute Neutrophil Count 8.23 10^3/uL (1.2-6.7); Basophils % 0.6; Eosinophils % 1.4; HCT 41.3 % (40.0-50.0); HGB 14.2 g/dL (13.5-17.5); Immature Grans % 0.5; Lymphocytes % 9.2; MCH 30.9 pg (27.0-33.0); MCHC 34.4 % (32.0-36.0); MCV 90 fL (80-95); Neutrophils % 77.3; Platelet Count 293 10^3/uL (130-400); RDW 13.5 % (11.8-14.1); RDW-SD 43.9 fL; WBC 10.64 10^3/uL (4.4-10.8)
[2022-10-12 12:41] LABS: ALT 19 U/L (16-63); AST 13 U/L (15-37); Albumin 3.1 g/dL (3.4-5.0); Alkaline Phosphatase 90 U/L (46-116); Anion Gap 7.1 mmol/L (3-11); BUN 13 mg/dL (7-18); Bilirubin, Total 0.4 mg/dL (0.2-1.0); CO2 26.9 mmol/L (21.0-32.0); CREATININE 0.7 mg/dL (0.70-1.30); Calcium 8.5 mg/dL (8.5-10.1); Chloride 97 mmol/L (98-107); Estimated GFR 95.49 (mL/min/1.73m2); Glucose 117 mg/dL (74-106); Magnesium 1.6 mg/dL (1.8-2.4); Potassium 4.1 mmol/L (3.5-5.1); Sodium 131 mmol/L (136-145); Total Protein 7.2 g/dL (6.4-8.2)
[2022-10-19] MEDS: Normal Saline Flush 10 ML SYR IVP (12:47)
[2022-10-19 12:48] LABS: Abs Immature Grans 0.04 10^3/uL (0.0-0.06); Absolute Basophil Count 0.05 10^3/uL (0.0-0.2); Absolute Eosinophil Count 0.09 10^3/uL (0.0-0.7); Absolute Lymphocyte Count 0.83 10^3/uL (1.2-3.4); Absolute Monocyte Count 0.77 10^3/uL (0.1-0.8); Absolute Neutrophil Count 5.08 10^3/uL (1.2-6.7); Basophils % 0.7; Eosinophils % 1.3; HGB 14.2 g/dL (13.5-17.5); Immature Grans % 0.6; Lymphocytes % 12.1; MCH 30.7 pg (27.0-33.0); MCHC 33.8 % (32.0-36.0); MCV 91 fL (80-95); MPV 8.6 fL (8.0-11.0); Monocytes % 11.2; Neutrophils % 74.1; Platelet Count 233 10^3/uL (130-400); RBC 4.63 10^6/uL (4.36-5.78); RDW 13.8 % (11.8-14.1); RDW-SD 44.2 fL; WBC 6.86 10^3/uL (4.4-10.8)
[2022-10-19 13:40] LABS: ALT 18 U/L (16-63); AST 17 U/L (15-37); Albumin 3.3 g/dL (3.4-5.0); Alkaline Phosphatase 89 U/L (46-116); Anion Gap 7.1 mmol/L (3-11); BUN 11 mg/dL (7-18); Bilirubin, Total 0.4 mg/dL (0.2-1.0); CO2 26.9 mmol/L (21.0-32.0); CREATININE 0.6 mg/dL (0.70-1.30); Calcium 8.3 mg/dL (8.5-10.1); Chloride 97 mmol/L (98-107); Estimated GFR 100.04 (mL/min/1.73m2); Glucose 112 mg/dL (74-106); Magnesium 1.5 mg/dL (1.8-2.4); Potassium 4.4 mmol/L (3.5-5.1); Sodium 131 mmol/L (136-145); Total Protein 7.4 g/dL (6.4-8.2)
[2022-10-27] MEDS: Normal Saline Flush 10 ML SYR IVP (08:41)
[2022-10-27 08:51] LABS: Abs Immature Grans 0.03 10^3/uL (0.0-0.06); Absolute Basophil Count 0.03 10^3/uL (0.0-0.2); Absolute Eosinophil Count 0.06 10^3/uL (0.0-0.7); Absolute Lymphocyte Count 0.68 10^3/uL (1.2-3.4); Absolute Monocyte Count 0.64 10^3/uL (0.1-0.8); Absolute Neutrophil Count 4.43 10^3/uL (1.2-6.7); Basophils % 0.5; HCT 41.3 % (40.0-50.0); HGB 14.2 g/dL (13.5-17.5); Immature Grans % 0.5; Lymphocytes % 11.6; MCH 30.8 pg (27.0-33.0); MCHC 34.4 % (32.0-36.0); MCV 90 fL (80-95); Monocytes % 10.9; Neutrophils % 75.5; Platelet Count 157 10^3/uL (130-400); RBC 4.61 10^6/uL (4.36-5.78); RDW 14.6 % (11.8-14.1); WBC 5.87 10^3/uL (4.4-10.8)
[2022-10-27 09:14] LABS: ALT 20 U/L (16-63); AST 20 U/L (15-37); Albumin 3.6 g/dL (3.4-5.0); Alkaline Phosphatase 82 U/L (46-116); BUN 10 mg/dL (7-18); Bilirubin, Total 0.6 mg/dL (0.2-1.0); CREATININE 0.5 mg/dL (0.70-1.30); Calcium 8.5 mg/dL (8.5-10.1); Chloride 99 mmol/L (98-107); Estimated GFR 105.71 (mL/min/1.73m2); Glucose 98 mg/dL (74-106); Magnesium 1.5 mg/dL (1.8-2.4); Potassium 4.2 mmol/L (3.5-5.1); Sodium 135 mmol/L (136-145); Total Protein 7.4 g/dL (6.4-8.2)
== END 2022-10-28 23:59 | disposition home or self-care (01) ==
LOC: INF 03:18
PROVIDERS: PCP Nurse Practitioner Family; Visit Provider Internal Medicine Hematology & Oncology
DX: C06.9 Malignant neoplasm of mouth, unspecified (principal); Z45.2 Encounter for adjustment and management of vascular access device
CPT/HCPCS: 36591; 80053; 83735; 85025

== ENCOUNTER 2022-11-09 04:01 | Outpatient (RCR) | payer MEDICARE, SELFPAY ==
[2022-11-02] MEDS: Normal Saline Flush 10 ML SYR IVP (09:33)
[2022-11-02 10:18] LABS: Abs Immature Grans 0.01 10^3/uL (0.0-0.06); Absolute Basophil Count 0.02 10^3/uL (0.0-0.2); Absolute Eosinophil Count 0.03 10^3/uL (0.0-0.7); Absolute Lymphocyte Count 0.71 10^3/uL (1.2-3.4); Absolute Monocyte Count 0.53 10^3/uL (0.1-0.8); Absolute Neutrophil Count 3.22 10^3/uL (1.2-6.7); Basophils % 0.4; Eosinophils % 0.7; HCT 38.4 % (40.0-50.0); HGB 13.4 g/dL (13.5-17.5); Immature Grans % 0.2; Lymphocytes % 15.7; MCH 31.8 pg (27.0-33.0); MCHC 34.9 % (32.0-36.0); MCV 91 fL (80-95); MPV 9.4 fL (8.0-11.0); Monocytes % 11.7; Neutrophils % 71.3; Platelet Count 161 10^3/uL (130-400); RBC 4.22 10^6/uL (4.36-5.78); RDW 15.4 % (11.8-14.1); WBC 4.52 10^3/uL (4.4-10.8)
[2022-11-02 10:32] LABS: ALT 22 U/L (16-63); AST 18 U/L (15-37); Albumin 3.4 g/dL (3.4-5.0); Alkaline Phosphatase 73 U/L (46-116); Anion Gap 6.1 mmol/L (3-11); BUN 11 mg/dL (7-18); Bilirubin, Total 0.6 mg/dL (0.2-1.0); CO2 27.9 mmol/L (21.0-32.0); CREATININE 0.6 mg/dL (0.70-1.30); Calcium 8.3 mg/dL (8.5-10.1); Chloride 96 mmol/L (98-107); Estimated GFR 100.04 (mL/min/1.73m2); Glucose 123 mg/dL (74-106); Magnesium 1.3 mg/dL (1.8-2.4); Potassium 3.7 mmol/L (3.5-5.1); Sodium 130 mmol/L (136-145)
[2022-11-09] MEDS: Normal Saline Flush 10 ML SYR IVP (09:36)
[2022-11-09 09:59] LABS: Abs Immature Grans 0.02 10^3/uL (0.0-0.06); Absolute Basophil Count 0.02 10^3/uL (0.0-0.2); Absolute Eosinophil Count 0.02 10^3/uL (0.0-0.7); Absolute Monocyte Count 0.62 10^3/uL (0.1-0.8); Basophils % 0.6; Eosinophils % 0.6; HCT 37.8 % (40.0-50.0); HGB 12.9 g/dL (13.5-17.5); Immature Grans % 0.6; Lymphocytes % 16.9; MCH 31.2 pg (27.0-33.0); MCHC 34.1 % (32.0-36.0); MCV 92 fL (80-95); MPV 8.8 fL (8.0-11.0); Monocytes % 17.5; Neutrophils % 63.8; Platelet Count 180 10^3/uL (130-400); RBC 4.13 10^6/uL (4.36-5.78); RDW 16.5 % (11.8-14.1); WBC 3.55 10^3/uL (4.4-10.8)
[2022-11-09 10:00] LABS: Absolute Neutrophil Count 2.26 10^3/uL (1.2-6.7)
[2022-11-09 10:17] LABS: ALT 22 U/L (16-63); AST 19 U/L (15-37); Albumin 3.5 g/dL (3.4-5.0); Alkaline Phosphatase 72 U/L (46-116); Anion Gap 6.1 mmol/L (3-11); BUN 10 mg/dL (7-18); Bilirubin, Total 0.5 mg/dL (0.2-1.0); CO2 28.9 mmol/L (21.0-32.0); CREATININE 0.6 mg/dL (0.70-1.30); Calcium 8.1 mg/dL (8.5-10.1); Chloride 98 mmol/L (98-107); Estimated GFR 100.04 (mL/min/1.73m2); Glucose 93 mg/dL (74-106); Magnesium 1.4 mg/dL (1.8-2.4); Potassium 4.2 mmol/L (3.5-5.1); Sodium 133 mmol/L (136-145)
== END 2022-11-27 23:59 | disposition home or self-care (01) ==
LOC: INF 04:01
PROVIDERS: PCP Nurse Practitioner Family; Visit Provider Internal Medicine Hematology & Oncology
DX: C06.9 Malignant neoplasm of mouth, unspecified (principal); Z45.2 Encounter for adjustment and management of vascular access device
CPT/HCPCS: 36591; 80053; 83735; 85025

== ENCOUNTER 2022-11-25 16:43 | Outpatient (REF) | payer MEDICARE, SELFPAY ==
[2022-11-25 17:59] LABS: Abs Immature Grans 0.01 10^3/uL (0.0-0.06); Absolute Basophil Count 0.04 10^3/uL (0.0-0.2); Absolute Eosinophil Count 0.05 10^3/uL (0.0-0.7); Absolute Lymphocyte Count 0.71 10^3/uL (1.2-3.4); Absolute Monocyte Count 1.11 10^3/uL (0.1-0.8); Absolute Neutrophil Count 2.66 10^3/uL (1.2-6.7); Basophils % 0.9; Eosinophils % 1.1; HCT 32.9 % (40.0-50.0); HGB 11.4 g/dL (13.5-17.5); Immature Grans % 0.2; Lymphocytes % 15.5; MCHC 34.7 % (32.0-36.0); MCV 95 fL (80-95); MPV 9.2 fL (8.0-11.0); Monocytes % 24.2; Neutrophils % 58.1; Platelet Count 165 10^3/uL (130-400); RBC 3.45 10^6/uL (4.36-5.78); RDW 19.9 % (11.8-14.1); RDW-SD 66.2 fL; WBC 4.58 10^3/uL (4.4-10.8)
[2022-11-25 18:19] LABS: ALT 17 U/L (16-63); AST 15 U/L (15-37); Albumin 3.2 g/dL (3.4-5.0); Alkaline Phosphatase 70 U/L (46-116); Anion Gap 8.3 mmol/L (3-11); BUN 13 mg/dL (7-18); Bilirubin, Total 0.4 mg/dL (0.2-1.0); CO2 27.7 mmol/L (21.0-32.0); CREATININE 0.6 mg/dL (0.70-1.30); Calcium 8.3 mg/dL (8.5-10.1); Chloride 95 mmol/L (98-107); Estimated GFR 100.04 (mL/min/1.73m2); Glucose 100 mg/dL (74-106); Magnesium 1.5 mg/dL (1.8-2.4); Potassium 4.1 mmol/L (3.5-5.1); Sodium 131 mmol/L (136-145); Total Protein 6.9 g/dL (6.4-8.2)
== END 2022-11-25 16:44 | disposition home or self-care (01) ==
LOC: NCHCN 16:43
PROVIDERS: PCP Nurse Practitioner Family
DX: C02.9 Malignant neoplasm of tongue, unspecified (principal)
CPT/HCPCS: 80053; 83735; 85025

== ENCOUNTER 2022-12-07 02:00 | Outpatient (RCR) | payer MEDICARE, SELFPAY ==
[2022-12-07] MEDS: Normal Saline Flush 10 ML SYR IVP (10:40)
[2022-12-07] MEDS: Heparin 500 UNITS/5 ML SYRINGE IV (10:40)
[2022-12-07 11:28] LABS: Abs Immature Grans 0.03 10^3/uL (0.0-0.06); Absolute Basophil Count 0.05 10^3/uL (0.0-0.2); Absolute Eosinophil Count 0.09 10^3/uL (0.0-0.7); Absolute Lymphocyte Count 0.63 10^3/uL (1.2-3.4); Absolute Monocyte Count 0.92 10^3/uL (0.1-0.8); Absolute Neutrophil Count 3.94 10^3/uL (1.2-6.7); Basophils % 0.9; Eosinophils % 1.6; HCT 36.6 % (40.0-50.0); HGB 12.5 g/dL (13.5-17.5); Immature Grans % 0.5; Lymphocytes % 11.1; MCH 32.9 pg (27.0-33.0); MCHC 34.2 % (32.0-36.0); MCV 96 fL (80-95); MPV 8.9 fL (8.0-11.0); Monocytes % 16.3; Neutrophils % 69.6; Platelet Count 247 10^3/uL (130-400); RDW 20.7 % (11.8-14.1); RDW-SD 71.5 fL; WBC 5.66 10^3/uL (4.4-10.8)
[2022-12-07 11:42] LABS: Anisocytosis 2+; Diff Comment RBC Morph Reviewed
[2022-12-07 11:49] LABS: ALT 16 U/L (16-63); AST 20 U/L (15-37); Albumin 3.5 g/dL (3.4-5.0); Alkaline Phosphatase 103 U/L (46-116); Anion Gap 7.5 mmol/L (3-11); BUN 12 mg/dL (7-18); Bilirubin, Total 0.5 mg/dL (0.2-1.0); CO2 28.5 mmol/L (21.0-32.0); CREATININE 0.6 mg/dL (0.70-1.30); Calcium 8.7 mg/dL (8.5-10.1); Chloride 99 mmol/L (98-107); Estimated GFR 100.04 (mL/min/1.73m2); Glucose 97 mg/dL (74-106); Magnesium 1.6 mg/dL (1.8-2.4); Sodium 135 mmol/L (136-145); Total Protein 7.3 g/dL (6.4-8.2)
== END 2022-12-28 23:59 | disposition home or self-care (01) ==
LOC: INF 02:00
PROVIDERS: PCP Nurse Practitioner Family; Visit Provider Internal Medicine Hematology & Oncology
DX: C06.9 Malignant neoplasm of mouth, unspecified (principal); Z45.2 Encounter for adjustment and management of vascular access device
CPT/HCPCS: 36591; 80053; 83735; 85025

== ENCOUNTER 2023-01-04 02:23 | Outpatient (RCR) | payer MEDICARE, SELFPAY ==
[2023-01-04 09:32] LABS: Abs Immature Grans 0.02 10^3/uL (0.0-0.06); Absolute Basophil Count 0.05 10^3/uL (0.0-0.2); Absolute Lymphocyte Count 0.69 10^3/uL (1.2-3.4); Absolute Monocyte Count 0.99 10^3/uL (0.1-0.8); Absolute Neutrophil Count 6.21 10^3/uL (1.2-6.7); Basophils % 0.6; Eosinophils % 2.5; HCT 37.8 % (40.0-50.0); HGB 12.9 g/dL (13.5-17.5); Immature Grans % 0.2; Lymphocytes % 8.5; MCH 33.4 pg (27.0-33.0); MCHC 34.1 % (32.0-36.0); MCV 98 fL (80-95); MPV 8.7 fL (8.0-11.0); Monocytes % 12.1; Neutrophils % 76.1; Platelet Count 234 10^3/uL (130-400); RBC 3.86 10^6/uL (4.36-5.78); RDW 15.2 % (11.8-14.1); RDW-SD 55.7 fL; WBC 8.16 10^3/uL (4.4-10.8)
[2023-01-04 09:49] LABS: ALT 15 U/L (16-63); AST 16 U/L (15-37); Albumin 3.2 g/dL (3.4-5.0); Alkaline Phosphatase 115 U/L (46-116); Anion Gap 6.8 mmol/L (3-11); BUN 11 mg/dL (7-18); Bilirubin, Total 0.5 mg/dL (0.2-1.0); CO2 28.2 mmol/L (21.0-32.0); CREATININE 0.6 mg/dL (0.70-1.30); Calcium 8.5 mg/dL (8.5-10.1); Chloride 98 mmol/L (98-107); Estimated GFR 100.04 (mL/min/1.73m2); Glucose 91 mg/dL (74-106); Magnesium 1.6 mg/dL (1.8-2.4); Potassium 4.2 mmol/L (3.5-5.1); Sodium 133 mmol/L (136-145); Total Protein 7.2 g/dL (6.4-8.2)
[2023-01-04] MEDS: Heparin 500 UNITS/5 ML SYRINGE IV (10:33)
[2023-01-04] MEDS: Normal Saline Flush 10 ML SYR IVP (10:33)
[2023-01-04 16:24] LABS: TSH 4.97 uIU/mL (0.36-3.74)
== END 2023-01-28 23:59 | disposition home or self-care (01) ==
LOC: INF 02:23
PROVIDERS: Internal Medicine; PCP Nurse Practitioner Family; Visit Provider Internal Medicine Hematology & Oncology
DX: C06.9 Malignant neoplasm of mouth, unspecified (principal); E03.9 Hypothyroidism, unspecified; Z45.2 Encounter for adjustment and management of vascular access device
CPT/HCPCS: 36591; 80053; 83735; 84443; 85025

== ENCOUNTER 2023-02-02 02:18 | Outpatient (RCR) | payer MEDICARE, SELFPAY ==
[2023-02-02] MEDS: Normal Saline Flush 10 ML SYR IVP (12:22)
[2023-02-02] MEDS: Heparin 500 UNITS/5 ML SYRINGE IV (12:22)
== END 2023-02-27 23:59 | disposition home or self-care (01) ==
LOC: INF 02:18
PROVIDERS: PCP Nurse Practitioner Family; Visit Provider Internal Medicine Hematology & Oncology
DX: Z45.2 Encounter for adjustment and management of vascular access device (principal)
CPT/HCPCS: 96523